=== PATIENT | male | born 1935 | race Caucasian/White ===

== ENCOUNTER → 2018-06-12 09:29 | Outpatient (CLI) | payer OTHER, SELFPAY ==
--- NOTE | 2018-06-12 09:31 | DI.RAD.S_ITS ---
PROCEDURE: XR ELBOW LT MIN 3V INDICATIONS: TENDINITIS OF LEFT ELBOW TECHNIQUE: 4 views of the elbow were acquired. COMPARISON: None. FINDINGS: Bones: No fractures or dislocations. No suspicious bony lesions. 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 This is most prominent at the olecranon fossa and radial head. Soft tissues: No elbow joint effusion. No suspicious soft tissue calcifications. 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 Dictated by: Vince Reyes M.D. on 06/12/2018 at 10:46 Approved by: Vince Reyes M.D. on 06/12/2018 at 10:46
== END ==
PROVIDERS: Family Provider Family Medicine; PCP Family Medicine; Visit Provider Family Medicine
DX: M19.022 Primary osteoarthritis, left elbow (principal); M77.8 Other enthesopathies, not elsewhere classified
CPT/HCPCS: 73080

== ENCOUNTER → 2018-11-11 13:37 | Outpatient (CLI) | payer OTHER, SELFPAY ==
[2018-11-11 14:01] LABS: INR 2.7 (0.9-1.3)
== END ==
PROVIDERS: PCP Family Medicine; Visit Provider Family Medicine
DX: Z95.0 Presence of cardiac pacemaker (principal)
CPT/HCPCS: 36415; 85610

== ENCOUNTER → 2018-11-11 14:50 | Outpatient (CLI) | payer OTHER, SELFPAY ==
--- NOTE | 2018-11-11 14:53 | DI.RAD.S_ITS ---
PROCEDURE: XR THORACIC SPINE 3V INDICATIONS: pain TECHNIQUE: 3 views of the thoracic spine were acquired. COMPARISON: None. FINDINGS: Bones: No fractures or dislocations. Diffuse thoracic spine endplate spurring and sclerosis No suspicious bony lesions. Lower cervical disc degeneration. Lateral curvature of the spine Soft tissues: No paravertebral stripe thickening. IMPRESSION: Diffuse discogenic changes. No fracture Dictated by: Eduardo Stallworth M.D. on 11/11/2018 at 15:57 Approved by: Eduardo Stallworth M.D. on 11/11/2018 at 15:58
--- NOTE | 2018-11-11 14:53 | DI.RAD.S_ITS ---
PROCEDURE: XR LUMBAR SPINE 2-3V INDICATIONS: pain TECHNIQUE: 3 -views of the lumbar spine were acquired. COMPARISON: [facility], , L-SPINE 2-3 VIEWS, 11/19/2013, 16:12. FINDINGS: Bones: No fracture or focal osseous destruction. Grade 1 retrolisthesis of L2 on L3 and L3 on L4. Diffuse facet arthropathy. Moderate narrowing of the L1-L2 and L2-L3 disc spaces. Mild narrowing of the L4-L5 and L5-S1 disc spaces. Dextrocurvature centered at L2 Soft tissues: Overlying bowel gas pattern is normal. No suspicious soft tissue calcifications. IMPRESSION: Multilevel lumbar degeneration and facet arthropathy as detailed above. Notable change since 11/19/13. Dextroscoliosis as before. Dictated by: Eduardo Stallworth M.D. on 11/11/2018 at 15:55 Approved by: Eduardo Stallworth M.D. on 11/11/2018 at 15:57
== END ==
PROVIDERS: PCP Family Medicine; Visit Provider Family Medicine
DX: M51.36 Other intervertebral disc degeneration, lumbar region (principal); M48.061 Spinal stenosis, lumbar region without neurogenic claudication; M47.816 Spondylosis without myelopathy or radiculopathy, lumbar region; M41.86 Other forms of scoliosis, lumbar region
CPT/HCPCS: 36415; 72072; 72100; 85610

== ENCOUNTER → 2018-11-26 15:28 | Outpatient (CLI) | payer OTHER, SELFPAY ==
[2018-11-26 15:47] LABS: Add Manual Diff / Slide Review NO; Basophils Absolute Auto 0 /uL (0-100); Basophils Percent Auto 0.4 % (0-2); Eosinophils Absolute Auto 100 /uL (0-450); Eosinophils Percent Auto 1.3 % (2-4); Hematocrit 43.4 % (41-53); Hemoglobin 14.5 g/dL (13.5-17.5); Lymphocytes Absolute Auto 1100 /uL (1100-4500); Lymphocytes Percent Auto 13.5 % (25-40); Mean Corpuscular HGB Conc 33.5 % (30-36); Mean Corpuscular Volume 95.5 fL (80-100); Monocytes Absolute Auto 700 /uL (0-900); Monocytes Percent Auto 9.2 % (3-14); Neutrophils Absolute Auto 6000 /uL (1500-7000); Neutrophils Percent Auto 75.6 % (50-75); Platelet Count 176 X10^3/uL (150-400); Red Blood Cell Count 4.54 X10^6/uL (4.5-5.9); Red Cell Distribution Width 13.1 % (11.6-14.8)
[2018-11-26 16:18] LABS: Erythrocyte Sedimentation Rate 24 MM/HR (0-15)
[2018-11-26 16:37] LABS: C-Reactive Protein Quant 0.9 mg/dL (<1.0); Uric Acid 5.6 mg/dL (3.5-8.5)
[2018-11-26 16:38] LABS: Rheumatoid Factor < 8.6 IU/mL (<12.0)
[2018-11-29 20:26] LABS: ANA Screen NEGATIVE (Negative); DNA Antibody Crithidia IFA NEGATIVE (Negative); Rheumatoid Factor <14 IU/mL; Sjogren Antiboday SS-A <1.0 NEG AI (<1.0 NEGATIVE); Sjogren Antiboday SS-B <1.0 NEG AI (<1.0 NEGATIVE); Sm Antibody <1.0 NEG AI (<1.0 NEGATIVE); Sm/RNP Antibody <1.0 NEG AI (<1.0 NEGATIVE)
== END ==
PROVIDERS: PCP Family Medicine; Visit Provider Family Medicine
DX: M25.50 Pain in unspecified joint (principal)
CPT/HCPCS: 36415; 84550; 85025; 85651; 86038; 86140; 86430

== ENCOUNTER 2018-12-05 07:30 | Outpatient (RCR) | payer OTHER, SELFPAY ==
--- NOTE | 2018-11-18 15:00 | PT.OIE ---
Current Diagnoses Cervicalgia (11/18/18) Dorsalgia, unspecified (11/18/18) Past Medical History (Last Updated 05/31/18 @ 12:33 by Brisa De La Cruz) ADHD (attention deficit hyperactivity disorder) (Chronic 1935) Cardiac arrhythmia (Chronic 2005) Cataract (Chronic 2011) Chronic back pain (Chronic 1970) Elevated PSA (Chronic 2007) Fecal incontinence (Chronic 2011) Frequent UTI (Chronic) Hearing loss (Chronic 1994) Hypertension (Chronic 2000) Retinal detachment (Chronic 1993) Tinnitus (Chronic ~2004) Chicken pox (Resolved 1939) Kidney stones (Resolved 1960) Measles (Resolved 1940) Melanoma (Resolved ~1989) Skull fracture (Resolved 1939) Past Surgical History (Last Updated 05/31/18 @ 12:25 by Brisa De La Cruz) Anesthesia (Resolved) History of cranial surgery (Resolved 1939) History of nephrolithotomy with removal of calculi (Resolved 1960) Provider Visit Care Team Role Provider Type Jason Vázquez MD Attending Provider Physician Primary Care Provider Specialty: [facility] Address: [address] [place] [address] Email: [email or web address] Physical Therapy Initial Evaluation PT-OP-A Visit Information Start: 11/18/18 09:48 Freq: Status: Active Protocol: Document 11/18/18 11:19 LRN (Rec: 11/18/18 15:09 JAVED [id number]) Out-Patient Physical Therapy Visit Information Visit Information Visit Type Initial Evaluation Visit Start Time 11:19 Visit Stop Time 12:15 Total Visit Minutes 56 Visit Number 1 Number of REGULATORY ASSOCIATE Visits 0 Evaluation Information Evaluation Date 11/18/18 Precautions Precautions Cardiac Pacemaker PT-OP-B Current Condition Start: 11/18/18 09:48 Freq: Status: Active Protocol: Document 11/18/18 11:19 LRN (Rec: 11/18/18 15:09 LRN [id number]) Current Condition History of Current Condition Onset Date 4 weeks ago Current Complaints L elbow, R knee, neck and back pain. History of Current Condition Pt reports 4 weeks ago he had severe neck and back pain that has since resolved, but now is experiencing one week of L elbow and R knee pain. He believes his elbow hurts from having to remove snow/ice and that his knee hurts since he did some work at home requiring him to kneel. He wore a sling for 1 day and was told not to, so now he notes restricted mobility of the elbow. Prior Treatments and Tests X-rays of mid and low back. Pt reports Cervical X-rays 2 years ago (not verified). Future Testing and Treatments Planned None Treatment Goals Patient/Caregiver Goals Pt goals: To be placed on a HEP with specfic directions for how to exercise (weights, reps, etc.). To be able to move the L arm without tightness or pain. To be able to stand and walk without pain. Prior Functional Status Baseline Function- ADL's Independent Baseline Function- Mobility Independent Baseline Function- Recreation/Hobbies Exercised almost daily walking 1-1.5 miles and strengthening . Current Functional Impairments (Reported) Functional Limitations- ADL's Not able to participate in home exercises due to L arm limitation and R knee pain. Functional Limitations- Mobility/Gait Pain in R knee with first standing and gait. Personal Factors Other Personal Factors That May Effect Pacemaker Therapy/Recovery Lumbar disc degeneration and retrolisthesis L2 on L3 and L3 on L4. PT-OP-F Manual Assessment Start: 11/18/18 09:48 Freq: Status: Active Protocol: Document 11/18/18 11:19 LRN (Rec: 11/19/18 12:23 LRN [id number]) Manual Assessments Soft Tissue Assessment Soft Tissue Mobility Assessment Tightness and tenderness of L proximal anterior compartment of the forearm. He has a well healed scar in the anterior aspect of the forearm due to a prior surgery to remove a bone chip. PT-OP-H Neuro Start: 11/18/18 09:48 Freq: Status: Active Protocol: Document 11/18/18 11:19 LRN (Rec: 11/19/18 12:23 LRN [id number]) Sensation Evaluation Gross Sensation Gross Sensation WNL Comments Summary Comments Sensation is intact to soft touch in UE's & LE's. Deep Tendon Reflex & Clonus Assessment Deep Tendon Reflex Bilateral Achilles Deep Tendon Reflex 0 Absent Bilateral Patellar Deep Tendon Reflex 3+ Normal But Brisk Bilateral Tricep Deep Tendon Reflex 2+ Normal Bilateral Bicep Deep Tendon Reflex 2+ Normal Bilateral Brachioradialis Deep Tendon Reflex 1+ Diminished PT-OP-J Posture/Palpation/Skin Start: 11/18/18 09:48 Freq: Status: Active Protocol: Document 11/18/18 11:19 LRN (Rec: 11/19/18 12:23 LRN [id number]) Posture Evaluation Comments Posture Comments In standing: Pt has very wide stance (~1 foot), mild decreased cervical & lumbar lordosis with mild posterior rotation of the pelvis. His COG appears to be more forward of midline. He has a mild C- curve in the mid thoracic region with the apex on the left. Palpation Assessment Location R knee Palpation Location Supra-patellar Palpation Findings Tenderness Palpation Details Mild tenderness ~midline of patella L elbow Palpation Location Wrist flexors and extensors adjacent to biceps tendon Palpation Findings Soft Tissue Tightness Tenderness PT-OP-K Range of Motion Start: 11/18/18 09:48 Freq: Status: Active Protocol: Document 11/18/18 11:19 LRN (Rec: 11/19/18 12:23 LRN [id number]) Cervical Spine Range of Motion Cervical Spine Active Degrees Testing Position Sitting Rotation Left 45 Rotation Right 45 Lumbar Spine Range of Motion Lumbar Spine Active Degrees Testing Position Standing Flexion 65 Extension 15 Rotation Left 30 Rotation Right 20 Lateral Flexion Left 13 Lateral Flexion Right 10 ROM Limitations Bony Restriction Pain Elbow/Forearm Range of Motion Elbow/Forearm Measured in Degrees Right Active ROM Testing Position Sitting Elbow Flexion (degrees) 142 Left Active ROM Testing Position Sitting Elbow Flexion (degrees) 124 Elbow/Forearm ROM Limitations Elbow/Forearm ROM Limitations Soft Tissue Tightness Knee Goniometric Range of Motion Knee Measured in Degrees Right Knee ROM WFL Yes Patient Position Supine Flexion Active (degrees) 130 Extension Active (degrees) 0 Left Knee ROM WFL Yes Patient Position Supine Flexion Active (degrees) 130 Extension Active (degrees) 0 PT-OP-M Strength Start: 11/18/18 09:48 Freq: Status: Active Protocol: Document 11/18/18 11:19 LRN (Rec: 11/19/18 12:23 LRN [id number]) Cervical Spine Strength Cervical Spine Manual Muscle Testing Testing Position Sitting Reason Not Measured WFL Shoulder Strength Shoulder Manual Muscle Testing Right Reason Not Measured WFL Left Reason Not Measured WFL Elbow/Forearm Strength Elbow and Forearm Manual Muscle Testing Left Flexion (C6) 5 Normal Extension (C7) 5 Normal Wrist Strength Wrist Manual Muscle Testing Left Flexion (C7) 5 Normal Extension (C6) 5 Normal Comments Pain in muscle bellies. Knee Strength Knee Manual Muscle Testing Right Reason Not Measured WFL Comments Slight pain R suprapatella, midline Left Reason Not Measured WFL PT-OP-Q Treatments Start: 11/18/18 09:48 Freq: Status: Active Protocol: Document 11/18/18 11:19 LRN (Rec: 11/18/18 15:09 LRN [id number]) Self-Care/Home Management Treatment Education Patient Education Home Exercise Program Other Education Use of Contrast bath technique (Hot/Cold) for L elbow. Activities Self-Care/Home Management Activities Issued, discussed & reviewed HEP: Elbow extension stretch f /b active stretch PT-OP-T Assessment and Plan Start: 11/18/18 09:48 Freq: Status: Active Protocol: Document 11/18/18 11:19 LRN (Rec: 11/18/18 15:09 LRN [id number]) Physical Therapy Assessment Rehab Potential Rehabilitation Potential Good Evaluation Complexity Number of Personal Factors/Comorbidities 1-2 Number of Body Systems Impaired 4 or More Clinical Presentation at Evaluation Evolving Impairments Impairments Pain ROM Soft Tissue Mobility Strength Other Impairments Cardiac pacemaker Other Concerns Age Related Concerns Pacemaker 65+ yrs old Barriers to Rehabilitation 65+ yrs old Arthritis Goals Four Impairment L arm and R knee pain limiting ability to exer for cardiac health. Fdc Goal (LTG) Pt will be independent with an exercise program of cardiovascular and mobility/ strengthening home ex's for his cardiac health and general mobility. LTG Duration 01/17/19 Three Impairment R knee pain limiting his ability to squat or knee. Residential Instructor Goal (LTG) Pt will be able to squat and kneel for functional activities without pain. LTG Duration 01/17/19 Two Impairment Limited L elbow mobility and pain (rated 4/10) Short Term Goal (STG) Improve L mobility for pt to be able to reach objects without pain. STG Duration 12/17/18 Fdc Goal (LTG) Pt will be able to use the L arm with pain no greater than 1/10, and be able to self manage onset of pain. LTG Duration 01/17/19 One Impairment Lacks self care HEP Residential Instructor Goal (LTG) Pt will be independent with a self care HEP. LTG Duration 01/17/19 Assessment Summary Assessment Pt presents with no neck or back pain today, but pt reports variable onset of pain , rated 0-4/10. Currently his primary areas of complaint are at his L anterior elbow and R knee. He appears to have a sprain of his L wrist flexors/extensors and has developed an elbow flexion contracture. It appears he has a sprain/strain of his R supra patellar tendon with possible bony involvement from arthritis. Possible neck or low back involvement to his extremity pain, but not apparent at this time. The pt will benefit from skilled physical therapy to decrease his L elbow and R knee pain and return the pt to his prior level of function of activity tolerance and exercise tolerance, primarily to place him on an exercise program for him to resume activity for his cardiac health. Physical Therapy Plan Frequency and Duration Frequency of Treatment 2x/Week Plan of Care Start Date 11/18/18 Plan of Care End Date 01/17/19 Therapeutic Interventions Therapeutic Interventions Home Exercise Program Manual Therapy Patient/Caregiver Education Self-Care/Home Management Soft Tissue Mobilization Therapeutic Exercises Modalities Cold Pack/Ice Massage Hot Packs Ultrasound Other Therapeutic Interventions K-tape Next Visit Focus/Plan Next Note Type Treatment Note Next Visit Plan Ultrasound L anterior elbow and R supra patellar knee if needed. PROM/AROM L elbow, possibly exercise warm up for L elbow extension and ROM R knee. Start pt towards his independent HEP of general strengthening and cardiac conditioning.
--- NOTE | 2018-11-18 15:00 | PT.OIE ---
Current Diagnoses Pain in left elbow (11/18/18) Pain in right knee (11/18/18) Cervicalgia (11/18/18) Dorsalgia, unspecified (11/18/18) Muscle weakness (generalized) (11/18/18) Past Medical History (Last Updated 05/31/18 @ 12:33 by Brisa De La Cruz) ADHD (attention deficit hyperactivity disorder) (Chronic 1935) Cardiac arrhythmia (Chronic 2005) Cataract (Chronic 2011) Chronic back pain (Chronic 1969) Elevated PSA (Chronic 2007) Fecal incontinence (Chronic 2011) Frequent UTI (Chronic) Hearing loss (Chronic 1994) Hypertension (Chronic 2000) Retinal detachment (Chronic 1993) Tinnitus (Chronic ~2004) Chicken pox (Resolved 1939) Kidney stones (Resolved 1960) Measles (Resolved 1940) Melanoma (Resolved ~1989) Skull fracture (Resolved 1939) Past Surgical History (Last Updated 05/31/18 @ 12:25 by Brisa De La Cruz) Anesthesia (Resolved) History of cranial surgery (Resolved 1939) History of nephrolithotomy with removal of calculi (Resolved 1960) Provider Visit Care Team Role Provider Type Jason Vázquez MD Attending Provider Physician Primary Care Provider Specialty: [facility] Practice Address: [address] [place] [address] Email: [email or web address] Physical Therapy Initial Evaluation PT-OP-A Visit Information Start: 11/18/18 09:48 Freq: Status: Active Protocol: Document 11/18/18 11:19 LRN (Rec: 11/18/18 15:09 JAVED [id number]) Out-Patient Physical Therapy Visit Information Visit Information Visit Type Initial Evaluation Visit Start Time 11: Visit Stop Time 12:15 Total Visit Minutes 56 Visit Number 1 Number of AUTOMATIC NAILING MACHINE OPERATOR Visits 0 Evaluation Information Evaluation Date 11/18/18 Precautions Precautions Cardiac Pacemaker PT-OP-B Current Condition Start: 11/18/18 09:48 Freq: Status: Active Protocol: Document 11/18/18 11:19 LRN (Rec: 11/18/18 15:09 LRN [id number]) Current Condition History of Current Condition Onset Date 4 weeks ago Current Complaints L elbow, R knee, neck and back pain. History of Current Condition Pt reports 4 weeks ago he had severe neck and back pain that has since resolved, but now is experiencing one week of L elbow and R knee pain. He believes his elbow hurts from having to remove snow/ice and that his knee hurts since he did some work at home requiring him to kneel. He wore a sling for 1 day and was told not to, so now he notes restricted mobility of the elbow. Prior Treatments and Tests X-rays of mid and low back. Pt reports Cervical X-rays 2 years ago (not verified). Future Testing and Treatments Planned None Treatment Goals Patient/Caregiver Goals Pt goals: To be placed on a HEP with specfic directions for how to exercise (weights, reps, etc.). To be able to move the L arm without tightness or pain. To be able to stand and walk without pain. Prior Functional Status Baseline Function- ADL's Independent Baseline Function- Mobility Independent Baseline Function- Recreation/Hobbies Exercised almost daily walking 1-1.5 miles and strengthening . Current Functional Impairments (Reported) Functional Limitations- ADL's Not able to participate in home exercises due to L arm limitation and R knee pain. Functional Limitations- Mobility/Gait Pain in R knee with first standing and gait. Personal Factors Other Personal Factors That May Effect Pacemaker Therapy/Recovery Lumbar disc degeneration and retrolisthesis L2 on L3 and L3 on L4. PT-OP-F Manual Assessment Start: 11/18/18 09:48 Freq: Status: Active Protocol: Document 11/18/18 11:19 LRN (Rec: 11/19/18 12:23 LRN [id number]) Manual Assessments Soft Tissue Assessment Soft Tissue Mobility Assessment Tightness and tenderness of L proximal anterior compartment of the forearm. He has a well healed scar in the anterior aspect of the forearm due to a prior surgery to remove a bone chip. PT-OP-H Neuro Start: 11/18/18 09:48 Freq: Status: Active Protocol: Document 11/18/18 11:19 LRN (Rec: 11/19/18 12:23 LRN [id number]) Sensation Evaluation Gross Sensation Gross Sensation WNL Comments Summary Comments Sensation is intact to soft touch in UE's & LE's. Deep Tendon Reflex & Clonus Assessment Deep Tendon Reflex Bilateral Achilles Deep Tendon Reflex 0 Absent Bilateral Patellar Deep Tendon Reflex 3+ Normal But Brisk Bilateral Tricep Deep Tendon Reflex 2+ Normal Bilateral Bicep Deep Tendon Reflex 2+ Normal Bilateral Brachioradialis Deep Tendon Reflex 1+ Diminished PT-OP-J Posture/Palpation/Skin Start: 11/18/18 09:48 Freq: Status: Active Protocol: Document 11/18/18 11:19 LRN (Rec: 11/19/18 12:23 LRN [id number]) Posture Evaluation Comments Posture Comments In standing: Pt has very wide stance (~1 foot), mild decreased cervical & lumbar lordosis with mild posterior rotation of the pelvis. His COG appears to be more forward of midline. He has a mild C- curve in the mid thoracic region with the apex on the left. Palpation Assessment Location R knee Palpation Location Supra-patellar Palpation Findings Tenderness Palpation Details Mild tenderness ~midline of patella L elbow Palpation Location Wrist flexors and extensors adjacent to biceps tendon Palpation Findings Soft Tissue Tightness Tenderness PT-OP-K Range of Motion Start: 11/18/18 09:48 Freq: Status: Active Protocol: Document 11/18/18 11:19 LRN (Rec: 11/19/18 12:23 LRN [id number]) Cervical Spine Range of Motion Cervical Spine Active Degrees Testing Position Sitting Rotation Left 45 Rotation Right 45 Lumbar Spine Range of Motion Lumbar Spine Active Degrees Testing Position Standing Flexion 65 Extension 15 Rotation Left 30 Rotation Right 20 Lateral Flexion Left 13 Lateral Flexion Right 10 ROM Limitations Bony Restriction Pain Elbow/Forearm Range of Motion Elbow/Forearm Measured in Degrees Right Active ROM Testing Position Sitting Elbow Flexion (degrees) 142 Left Active ROM Testing Position Sitting Elbow Flexion (degrees) 124 Elbow/Forearm ROM Limitations Elbow/Forearm ROM Limitations Soft Tissue Tightness Knee Goniometric Range of Motion Knee Measured in Degrees Right Knee ROM WFL Yes Patient Position Supine Flexion Active (degrees) 130 Extension Active (degrees) 0 Left Knee ROM WFL Yes Patient Position Supine Flexion Active (degrees) 130 Extension Active (degrees) 0 PT-OP-M Strength Start: 11/18/18 09:48 Freq: Status: Active Protocol: Document 11/18/18 11:19 LRN (Rec: 11/19/18 12:23 LRN [id number]) Cervical Spine Strength Cervical Spine Manual Muscle Testing Testing Position Sitting Reason Not Measured WFL Shoulder Strength Shoulder Manual Muscle Testing Right Reason Not Measured WFL Left Reason Not Measured WFL Elbow/Forearm Strength Elbow and Forearm Manual Muscle Testing Left Flexion (C6) 5 Normal Extension (C7) 5 Normal Wrist Strength Wrist Manual Muscle Testing Left Flexion (C7) 5 Normal Extension (C6) 5 Normal Comments Pain in muscle bellies. Knee Strength Knee Manual Muscle Testing Right Reason Not Measured WFL Comments Slight pain R suprapatella, midline Left Reason Not Measured WFL PT-OP-Q Treatments Start: 11/18/18 09:48 Freq: Status: Active Protocol: Document 11/18/18 11:19 LRN (Rec: 11/18/18 15:09 LRN [id number]) Self-Care/Home Management Treatment Education Patient Education Home Exercise Program Other Education Use of Contrast bath technique (Hot/Cold) for L elbow. Activities Self-Care/Home Management Activities Issued, discussed & reviewed HEP: Elbow extension stretch f /b active stretch PT-OP-T Assessment and Plan Start: 11/18/18 09:48 Freq: Status: Active Protocol: Document 11/18/18 11:19 LRN (Rec: 11/18/18 15:09 LRN [id number]) Physical Therapy Assessment Rehab Potential Rehabilitation Potential Good Evaluation Complexity Number of Personal Factors/Comorbidities 1-2 Number of Body Systems Impaired 4 or More Clinical Presentation at Evaluation Evolving Impairments Impairments Pain ROM Soft Tissue Mobility Strength Other Impairments Cardiac pacemaker Other Concerns Age Related Concerns Pacemaker 65+ yrs old Barriers to Rehabilitation 65+ yrs old Arthritis Goals Four Impairment L arm and R knee pain limiting ability to exer for cardiac health. Brush And Broom Clipper Goal (LTG) Pt will be independent with an exercise program of cardiovascular and mobility/ strengthening home ex's for his cardiac health and general mobility. LTG Duration 01/17/19 Three Impairment R knee pain limiting his ability to squat or knee. Brush And Broom Clipper Goal (LTG) Pt will be able to squat and kneel for functional activities without pain. LTG Duration 01/17/19 Two Impairment Limited L elbow mobility and pain (rated 4/10) Short Term Goal (STG) Improve L mobility for pt to be able to reach objects without pain. STG Duration 12/17/18 Brush And Broom Clipper Goal (LTG) Pt will be able to use the L arm with pain no greater than 1/10, and be able to self manage onset of pain. LTG Duration 01/17/19 One Impairment Lacks self care HEP Brush And Broom Clipper Goal (LTG) Pt will be independent with a self care HEP. LTG Duration 01/17/19 Assessment Summary Assessment Pt presents with no neck or back pain today, but pt reports variable onset of pain , rated 0-4/10. Currently his primary areas of complaint are at his L anterior elbow and R knee. He appears to have a sprain of his L wrist flexors/extensors and has developed an elbow flexion contracture. It appears he has a sprain/strain of his R supra patellar tendon with possible bony involvement from arthritis. Possible neck or low back involvement to his extremity pain, but not apparent at this time. The pt will benefit from skilled physical therapy to decrease his L elbow and R knee pain and return the pt to his prior level of function of activity tolerance and exercise tolerance, primarily to place him on an exercise program for him to resume activity for his cardiac health. Physical Therapy Plan Frequency and Duration Frequency of Treatment 2x/Week Plan of Care Start Date 11/18/18 Plan of Care End Date 01/17/19 Therapeutic Interventions Therapeutic Interventions Home Exercise Program Manual Therapy Patient/Caregiver Education Self-Care/Home Management Soft Tissue Mobilization Therapeutic Exercises Modalities Cold Pack/Ice Massage Hot Packs Ultrasound Other Therapeutic Interventions K-tape Next Visit Focus/Plan Next Note Type Treatment Note Next Visit Plan Ultrasound L anterior elbow and R supra patellar knee if needed. PROM/AROM L elbow, possibly exercise warm up for L elbow extension and ROM R knee. Start pt towards his independent HEP of general strengthening and cardiac conditioning.
--- NOTE | 2018-11-20 08:43 | PT.OTN ---
Current Diagnoses Cervicalgia (11/20/18) Dorsalgia, unspecified (11/20/18) Physical Therapy Treatment Note PT-OP-A Visit Information Start: 11/18/18 09:48 Freq: Status: Active Protocol: Document 11/20/18 07:30 AMB (Rec: 11/20/18 08:43 AMB [id number]) Out-Patient Physical Therapy Visit Information Visit Information Visit Type Treatment Note Visit Start Time 07:30 Visit Stop Time 08:15 Total Visit Minutes 45 Visit Number 2 PT-OP-B Current Condition Start: 11/18/18 09:48 Freq: Status: Active Protocol: Document 11/18/18 11:19 LRN (Rec: 11/18/18 15:09 LRN [id number]) Current Condition History of Current Condition Onset Date 4 weeks ago Current Complaints L elbow, R knee, neck and back pain. History of Current Condition Pt reports 4 weeks ago he had severe neck and back pain that has since resolved, but now is experiencing one week of L elbow and R knee pain. He believes his elbow hurts from having to remove snow/ice and that his knee hurts since he did some work at home requiring him to kneel. He wore a sling for 1 day and was told not to, so now he notes restricted mobility of the elbow. Prior Treatments and Tests X-rays of mid and low back. Pt reports Cervical X-rays 2 years ago (not verified). Future Testing and Treatments Planned None Treatment Goals Patient/Caregiver Goals Pt goals: To be placed on a HEP with specfic directions for how to exercise (weights, reps, etc.). To be able to move the L arm without tightness or pain. To be able to stand and walk without pain. Prior Functional Status Baseline Function- ADL's Independent Baseline Function- Mobility Independent Baseline Function- Recreation/Hobbies Exercised almost daily walking 1-1.5 miles and strengthening . Current Functional Impairments (Reported) Functional Limitations- ADL's Not able to participate in home exercises due to L arm limitation and R knee pain. Functional Limitations- Mobility/Gait Pain in R knee with first standing and gait. Personal Factors Other Personal Factors That May Effect Pacemaker Therapy/Recovery Lumbar disc degeneration and retrolisthesis L2 on L3 and L3 on L4. PT-OP-C Subjective Start: 11/18/18 09:48 Freq: Status: Active Protocol: Document 11/20/18 07:30 AMB (Rec: 11/20/18 08:43 AMB [id number]) OP-PT Subjective Patient Comments Patient Comments Pt reports extension is still bothersome to his elbow. His back and knee are doing well. Hasn't gotten back to his regular exercises yet. PT-OP-F Manual Assessment Start: 11/18/18 09:48 Freq: Status: Active Protocol: Document 11/18/18 11:19 LRN (Rec: 11/19/18 12:23 LRN [id number]) Manual Assessments Soft Tissue Assessment Soft Tissue Mobility Assessment Tightness and tenderness of L proximal anterior compartment of the forearm. He has a well healed scar in the anterior aspect of the forearm due to a prior surgery to remove a bone chip. PT-OP-H Neuro Start: 11/18/18 09:48 Freq: Status: Active Protocol: Document 11/18/18 11:19 LRN (Rec: 11/19/18 12:23 LRN [id number]) Sensation Evaluation Gross Sensation Gross Sensation WNL Comments Summary Comments Sensation is intact to soft touch in UE's & LE's. Deep Tendon Reflex & Clonus Assessment Deep Tendon Reflex Bilateral Achilles Deep Tendon Reflex 0 Absent Bilateral Patellar Deep Tendon Reflex 3+ Normal But Brisk Bilateral Tricep Deep Tendon Reflex 2+ Normal Bilateral Bicep Deep Tendon Reflex 2+ Normal Bilateral Brachioradialis Deep Tendon Reflex 1+ Diminished PT-OP-J Posture/Palpation/Skin Start: 11/18/18 09:48 Freq: Status: Active Protocol: Document 11/18/18 11:19 LRN (Rec: 11/19/18 12:23 LRN [id number]) Posture Evaluation Comments Posture Comments In standing: Pt has very wide stance (~1 foot), mild decreased cervical & lumbar lordosis with mild posterior rotation of the pelvis. His COG appears to be more forward of midline. He has a mild C- curve in the mid thoracic region with the apex on the left. Palpation Assessment Location R knee Palpation Location Supra-patellar Palpation Findings Tenderness Palpation Details Mild tenderness ~midline of patella L elbow Palpation Location Wrist flexors and extensors adjacent to biceps tendon Palpation Findings Soft Tissue Tightness Tenderness PT-OP-K Range of Motion Start: 11/18/18 09:48 Freq: Status: Active Protocol: Document 11/18/18 11:19 LRN (Rec: 11/19/18 12:23 LRN [id number]) Cervical Spine Range of Motion Cervical Spine Active Degrees Testing Position Sitting Rotation Left 45 Rotation Right 45 Lumbar Spine Range of Motion Lumbar Spine Active Degrees Testing Position Standing Flexion 65 Extension 15 Rotation Left 30 Rotation Right 20 Lateral Flexion Left 13 Lateral Flexion Right 10 ROM Limitations Bony Restriction Pain Elbow/Forearm Range of Motion Elbow/Forearm Measured in Degrees Right Active ROM Testing Position Sitting Elbow Flexion (degrees) 142 Left Active ROM Testing Position Sitting Elbow Flexion (degrees) 124 Elbow/Forearm ROM Limitations Elbow/Forearm ROM Limitations Soft Tissue Tightness Knee Goniometric Range of Motion Knee Measured in Degrees Right Knee ROM WFL Yes Patient Position Supine Flexion Active (degrees) 130 Extension Active (degrees) 0 Left Knee ROM WFL Yes Patient Position Supine Flexion Active (degrees) 130 Extension Active (degrees) 0 PT-OP-M Strength Start: 11/18/18 09:48 Freq: Status: Active Protocol: Document 11/18/18 11:19 LRN (Rec: 11/19/18 12:23 LRN [id number]) Cervical Spine Strength Cervical Spine Manual Muscle Testing Testing Position Sitting Reason Not Measured WFL Shoulder Strength Shoulder Manual Muscle Testing Right Reason Not Measured WFL Left Reason Not Measured WFL Elbow/Forearm Strength Elbow and Forearm Manual Muscle Testing Left Flexion (C6) 5 Normal Extension (C7) 5 Normal Wrist Strength Wrist Manual Muscle Testing Left Flexion (C7) 5 Normal Extension (C6) 5 Normal Comments Pain in muscle bellies. Knee Strength Knee Manual Muscle Testing Right Reason Not Measured WFL Comments Slight pain R suprapatella, midline Left Reason Not Measured WFL PT-OP-Q Treatments Start: 11/18/18 09:48 Freq: Status: Active Protocol: Document 11/20/18 07:30 AMB (Rec: 11/20/18 08:43 AMB [email or web address]) Therapeutic Exercises Sitting Exercises 2 Sitting Exercise Name LAQ AROM Reps/Minutes 2x10 1 Sitting Exercise Name wrist flexor stretch Reps/Minutes 30x2 Standing Exercises 3 Standing Exercise Name scapular protraction Comments standing at wall 2 Standing Exercise Name t band shoulder extension Resistance #1 Reps/Minutes 2x10 1 Standing Exercise Name t band rows Resistance #1 Reps/Minutes 2x10 PT-OP-T Assessment and Plan Start: 11/18/18 09:48 Freq: Status: Active Protocol: Document 11/20/18 07:30 AMB (Rec: 11/20/18 08:43 AMB [email or web address]) Physical Therapy Assessment Assessment Summary Assessment Pt has an extensive home program already, but needs assistance with how to safely get back to it. Elbow extension seems to be the most restricted currently. Physical Therapy Plan Next Visit Focus/Plan Next Note Type Treatment Note Next Visit Plan Ultrasound L anterior elbow PROM/AROM L elbow, possibly exercise warm up for L elbow extension and ROM R knee. Start pt towards his independent HEP of general strengthening and cardiac conditioning.
--- NOTE | 2018-11-26 09:52 | PT.OTN ---
Current Diagnoses Cervicalgia (11/26/18) Dorsalgia, unspecified (11/26/18) Physical Therapy Treatment Note PT-OP-A Visit Information Start: 11/18/18 09:48 Freq: Status: Active Protocol: Document 11/26/18 07:30 AMB (Rec: 11/26/18 07:37 AMB [id number]) Out-Patient Physical Therapy Visit Information Visit Information Visit Type Treatment Note Visit Start Time 07:30 Visit Stop Time 08:15 Visit Number 3 PT-OP-B Current Condition Start: 11/18/18 09:48 Freq: Status: Active Protocol: Document 11/18/18 11:19 LRN (Rec: 11/18/18 15:09 LRN [id number]) Current Condition History of Current Condition Onset Date 4 weeks ago Current Complaints L elbow, R knee, neck and back pain. History of Current Condition Pt reports 4 weeks ago he had severe neck and back pain that has since resolved, but now is experiencing one week of L elbow and R knee pain. He believes his elbow hurts from having to remove snow/ice and that his knee hurts since he did some work at home requiring him to kneel. He wore a sling for 1 day and was told not to, so now he notes restricted mobility of the elbow. Prior Treatments and Tests X-rays of mid and low back. Pt reports Cervical X-rays 2 years ago (not verified). Future Testing and Treatments Planned None Treatment Goals Patient/Caregiver Goals Pt goals: To be placed on a HEP with specfic directions for how to exercise (weights, reps, etc.). To be able to move the L arm without tightness or pain. To be able to stand and walk without pain. Prior Functional Status Baseline Function- ADL's Independent Baseline Function- Mobility Independent Baseline Function- Recreation/Hobbies Exercised almost daily walking 1-1.5 miles and strengthening . Current Functional Impairments (Reported) Functional Limitations- ADL's Not able to participate in home exercises due to L arm limitation and R knee pain. Functional Limitations- Mobility/Gait Pain in R knee with first standing and gait. Personal Factors Other Personal Factors That May Effect Pacemaker Therapy/Recovery Lumbar disc degeneration and retrolisthesis L2 on L3 and L3 on L4. PT-OP-C Subjective Start: 11/18/18 09:48 Freq: Status: Active Protocol: Document 11/26/18 07:30 AMB (Rec: 11/26/18 07:37 AMB [id number]) OP-PT Subjective Patient Comments Patient Comments Pt is feeling swelling in left wrist. PT-OP-F Manual Assessment Start: 11/18/18 09:48 Freq: Status: Active Protocol: Document 11/18/18 11:19 LRN (Rec: 11/19/18 12:23 LRN [id number]) Manual Assessments Soft Tissue Assessment Soft Tissue Mobility Assessment Tightness and tenderness of L proximal anterior compartment of the forearm. He has a well healed scar in the anterior aspect of the forearm due to a prior surgery to remove a bone chip. PT-OP-H Neuro Start: 11/18/18 09:48 Freq: Status: Active Protocol: Document 11/18/18 11:19 LRN (Rec: 11/19/18 12:23 LRN [id number]) Sensation Evaluation Gross Sensation Gross Sensation WNL Comments Summary Comments Sensation is intact to soft touch in UE's & LE's. Deep Tendon Reflex & Clonus Assessment Deep Tendon Reflex Bilateral Achilles Deep Tendon Reflex 0 Absent Bilateral Patellar Deep Tendon Reflex 3+ Normal But Brisk Bilateral Tricep Deep Tendon Reflex 2+ Normal Bilateral Bicep Deep Tendon Reflex 2+ Normal Bilateral Brachioradialis Deep Tendon Reflex 1+ Diminished PT-OP-J Posture/Palpation/Skin Start: 11/18/18 09:48 Freq: Status: Active Protocol: Document 11/18/18 11:19 LRN (Rec: 11/19/18 12:23 LRN [id number]) Posture Evaluation Comments Posture Comments In standing: Pt has very wide stance (~1 foot), mild decreased cervical & lumbar lordosis with mild posterior rotation of the pelvis. His COG appears to be more forward of midline. He has a mild C- curve in the mid thoracic region with the apex on the left. Palpation Assessment Location R knee Palpation Location Supra-patellar Palpation Findings Tenderness Palpation Details Mild tenderness ~midline of patella L elbow Palpation Location Wrist flexors and extensors adjacent to biceps tendon Palpation Findings Soft Tissue Tightness Tenderness PT-OP-K Range of Motion Start: 11/18/18 09:48 Freq: Status: Active Protocol: Document 11/18/18 11:19 LRN (Rec: 11/19/18 12:23 LRN [id number]) Cervical Spine Range of Motion Cervical Spine Active Degrees Testing Position Sitting Rotation Left 45 Rotation Right 45 Lumbar Spine Range of Motion Lumbar Spine Active Degrees Testing Position Standing Flexion 65 Extension 15 Rotation Left 30 Rotation Right 20 Lateral Flexion Left 13 Lateral Flexion Right 10 ROM Limitations Bony Restriction Pain Elbow/Forearm Range of Motion Elbow/Forearm Measured in Degrees Right Active ROM Testing Position Sitting Elbow Flexion (degrees) 142 Left Active ROM Testing Position Sitting Elbow Flexion (degrees) 124 Elbow/Forearm ROM Limitations Elbow/Forearm ROM Limitations Soft Tissue Tightness Knee Goniometric Range of Motion Knee Measured in Degrees Right Knee ROM WFL Yes Patient Position Supine Flexion Active (degrees) 130 Extension Active (degrees) 0 Left Knee ROM WFL Yes Patient Position Supine Flexion Active (degrees) 130 Extension Active (degrees) 0 PT-OP-M Strength Start: 11/18/18 09:48 Freq: Status: Active Protocol: Document 11/18/18 11:19 LRN (Rec: 11/19/18 12:23 LRN [id number]) Cervical Spine Strength Cervical Spine Manual Muscle Testing Testing Position Sitting Reason Not Measured WFL Shoulder Strength Shoulder Manual Muscle Testing Right Reason Not Measured WFL Left Reason Not Measured WFL Elbow/Forearm Strength Elbow and Forearm Manual Muscle Testing Left Flexion (C6) 5 Normal Extension (C7) 5 Normal Wrist Strength Wrist Manual Muscle Testing Left Flexion (C7) 5 Normal Extension (C6) 5 Normal Comments Pain in muscle bellies. Knee Strength Knee Manual Muscle Testing Right Reason Not Measured WFL Comments Slight pain R suprapatella, midline Left Reason Not Measured WFL PT-OP-Q Treatments Start: 11/18/18 09:48 Freq: Status: Active Protocol: Document 11/26/18 07:30 AMB (Rec: 11/26/18 09:06 AMB [id number]) Cardio Equipment Treadmill Duration (Minutes) 5 Speed 2.0 Gym Equipment Cable Column (Body Solid) Leg Extension Resistance 20 Reps/Time 2x10 Therapeutic Exercises Sitting Exercises 4 Sitting Exercise Name UT stretch 3 Sitting Exercise Name chin tuck Standing Exercises 5 Standing Exercise Name calf stretch 4 Standing Exercise Name hamstring stretch PT-OP-T Assessment and Plan Start: 11/18/18 09:48 Freq: Status: Active Protocol: Document 11/26/18 07:30 AMB (Rec: 11/26/18 09:02 AMB [id number]) Physical Therapy Assessment Assessment Summary Assessment Pt attends with L wrist swelling that he attributes to stretching his L elbow. His L elbow AROM is improved today , but we did not address this much today, as he is seeing his MD regarding the wrist. He is doing well with his knee and his neck. Physical Therapy Plan Next Visit Focus/Plan Next Note Type Treatment Note Next Visit Plan Ultrasound L anterior elbow PROM/AROM L elbow, possibly exercise warm up for L elbow extension and ROM R knee. Start pt towards his independent HEP of general strengthening and cardiac conditioning.
--- NOTE | 2018-12-05 15:22 | PT.OTN ---
Current Diagnoses Cervicalgia (12/05/18) Dorsalgia, unspecified (12/05/18) Physical Therapy Treatment Note PT-OP-A Visit Information Start: 11/18/18 09:48 Freq: Status: Active Protocol: Document 12/05/18 07:30 AMB (Rec: 12/05/18 07:44 AMB [id number]) Out-Patient Physical Therapy Visit Information Visit Information Visit Type Treatment Note Visit Start Time 07:30 Visit Stop Time 08:15 Visit Number 4 PT-OP-B Current Condition Start: 11/18/18 09:48 Freq: Status: Active Protocol: Document 11/18/18 11:19 LRN (Rec: 11/18/18 15:09 LRN [id number]) Current Condition History of Current Condition Onset Date 4 weeks ago Current Complaints L elbow, R knee, neck and back pain. History of Current Condition Pt reports 4 weeks ago he had severe neck and back pain that has since resolved, but now is experiencing one week of L elbow and R knee pain. He believes his elbow hurts from having to remove snow/ice and that his knee hurts since he did some work at home requiring him to kneel. He wore a sling for 1 day and was told not to, so now he notes restricted mobility of the elbow. Prior Treatments and Tests X-rays of mid and low back. Pt reports Cervical X-rays 2 years ago (not verified). Future Testing and Treatments Planned None Treatment Goals Patient/Caregiver Goals Pt goals: To be placed on a HEP with specfic directions for how to exercise (weights, reps, etc.). To be able to move the L arm without tightness or pain. To be able to stand and walk without pain. Prior Functional Status Baseline Function- ADL's Independent Baseline Function- Mobility Independent Baseline Function- Recreation/Hobbies Exercised almost daily walking 1-1.5 miles and strengthening . Current Functional Impairments (Reported) Functional Limitations- ADL's Not able to participate in home exercises due to L arm limitation and R knee pain. Functional Limitations- Mobility/Gait Pain in R knee with first standing and gait. Personal Factors Other Personal Factors That May Effect Pacemaker Therapy/Recovery Lumbar disc degeneration and retrolisthesis L2 on L3 and L3 on L4. PT-OP-C Subjective Start: 11/18/18 09:48 Freq: Status: Active Protocol: Document 12/05/18 07:30 AMB (Rec: 12/05/18 07:44 AMB [id number]) OP-PT Subjective Patient Comments Patient Comments Pt's swelling is better, has been walking, but has not gotten back to his regular exercise routine. PT-OP-F Manual Assessment Start: 11/18/18 09:48 Freq: Status: Active Protocol: Document 11/18/18 11:19 LRN (Rec: 11/19/18 12:23 LRN [id number]) Manual Assessments Soft Tissue Assessment Soft Tissue Mobility Assessment Tightness and tenderness of L proximal anterior compartment of the forearm. He has a well healed scar in the anterior aspect of the forearm due to a prior surgery to remove a bone chip. PT-OP-H Neuro Start: 11/18/18 09:48 Freq: Status: Active Protocol: Document 11/18/18 11:19 LRN (Rec: 11/19/18 12:23 LRN [id number]) Sensation Evaluation Gross Sensation Gross Sensation WNL Comments Summary Comments Sensation is intact to soft touch in UE's & LE's. Deep Tendon Reflex & Clonus Assessment Deep Tendon Reflex Bilateral Achilles Deep Tendon Reflex 0 Absent Bilateral Patellar Deep Tendon Reflex 3+ Normal But Brisk Bilateral Tricep Deep Tendon Reflex 2+ Normal Bilateral Bicep Deep Tendon Reflex 2+ Normal Bilateral Brachioradialis Deep Tendon Reflex 1+ Diminished PT-OP-J Posture/Palpation/Skin Start: 11/18/18 09:48 Freq: Status: Active Protocol: Document 11/18/18 11:19 LRN (Rec: 11/19/18 12:23 LRN [id number]) Posture Evaluation Comments Posture Comments In standing: Pt has very wide stance (~1 foot), mild decreased cervical & lumbar lordosis with mild posterior rotation of the pelvis. His COG appears to be more forward of midline. He has a mild C- curve in the mid thoracic region with the apex on the left. Palpation Assessment Location R knee Palpation Location Supra-patellar Palpation Findings Tenderness Palpation Details Mild tenderness ~midline of patella L elbow Palpation Location Wrist flexors and extensors adjacent to biceps tendon Palpation Findings Soft Tissue Tightness Tenderness PT-OP-K Range of Motion Start: 11/18/18 09:48 Freq: Status: Active Protocol: Document 11/18/18 11:19 LRN (Rec: 11/19/18 12:23 LRN [id number]) Cervical Spine Range of Motion Cervical Spine Active Degrees Testing Position Sitting Rotation Left 45 Rotation Right 45 Lumbar Spine Range of Motion Lumbar Spine Active Degrees Testing Position Standing Flexion 65 Extension 15 Rotation Left 30 Rotation Right 20 Lateral Flexion Left 13 Lateral Flexion Right 10 ROM Limitations Bony Restriction Pain Elbow/Forearm Range of Motion Elbow/Forearm Measured in Degrees Right Active ROM Testing Position Sitting Elbow Flexion (degrees) 142 Left Active ROM Testing Position Sitting Elbow Flexion (degrees) 124 Elbow/Forearm ROM Limitations Elbow/Forearm ROM Limitations Soft Tissue Tightness Knee Goniometric Range of Motion Knee Measured in Degrees Right Knee ROM WFL Yes Patient Position Supine Flexion Active (degrees) 130 Extension Active (degrees) 0 Left Knee ROM WFL Yes Patient Position Supine Flexion Active (degrees) 130 Extension Active (degrees) 0 PT-OP-M Strength Start: 11/18/18 09:48 Freq: Status: Active Protocol: Document 11/18/18 11:19 LRN (Rec: 11/19/18 12:23 LRN [id number]) Cervical Spine Strength Cervical Spine Manual Muscle Testing Testing Position Sitting Reason Not Measured WFL Shoulder Strength Shoulder Manual Muscle Testing Right Reason Not Measured WFL Left Reason Not Measured WFL Elbow/Forearm Strength Elbow and Forearm Manual Muscle Testing Left Flexion (C6) 5 Normal Extension (C7) 5 Normal Wrist Strength Wrist Manual Muscle Testing Left Flexion (C7) 5 Normal Extension (C6) 5 Normal Comments Pain in muscle bellies. Knee Strength Knee Manual Muscle Testing Right Reason Not Measured WFL Comments Slight pain R suprapatella, midline Left Reason Not Measured WFL PT-OP-Q Treatments Start: 11/18/18 09:48 Freq: Status: Active Protocol: Document 12/05/18 07:30 AMB (Rec: 12/05/18 15:17 AMB [email or web address]) Therapeutic Exercises Supine Exercises 1 Supine Exercise Name leg lift Comments with vc for flat lumbar spine Sitting Exercises 4 Sitting Exercise Name UT stretch 3 Sitting Exercise Name chin tuck 1 Sitting Exercise Name wrist flexor stretch Reps/Minutes 30x2 Standing Exercises 7 Standing Exercise Name lunges 6 Standing Exercise Name squats Therapeutic Activity Therapeutic Activity 1 Comments Ergonomic stetup of desk, appropriate lumbar support PT-OP-T Assessment and Plan Start: 11/18/18 09:48 Freq: Status: Active Protocol: Document 12/05/18 07:57 AMB (Rec: 12/05/18 08:04 [facility] [id number]) Physical Therapy Assessment Goals Four Impairment L arm and R knee pain limiting ability to exer for cardiac health. Alf Goal (LTG) Pt will be independent with an exercise program of cardiovascular and mobility/ strengthening home ex's for his cardiac health and general mobility. LTG Duration 01/17/19 Three Impairment R knee pain limiting his ability to squat or knee. [employer] Goal (LTG) Pt will be able to squat and kneel for functional activities without pain. LTG Duration MET Two Impairment Limited L elbow mobility and pain (rated 4/10) Short Term Goal (STG) Improve L mobility for pt to be able to reach objects without pain. STG Duration MET Alf Goal (LTG) Pt will be able to use the L arm with pain no greater than 1/10, and be able to self manage onset of pain. LTG Duration MET One Impairment Lacks self care HEP [employer] Goal (LTG) Pt will be independent with a self care HEP. LTG Duration 01/17/19 Assessment Summary Assessment Pt required extensive education in his HEP, and appropriate return to exercise . He has paused a lot of his UE exercises due to his elbow and wrist pain. He is seeing an orthopedic surgeon regarding his thumb tomorrow, and will discuss continued PT with him. Pt has an extensive HEP, so hopefully he will be able to return to it with caution soon. Physical Therapy Plan Next Visit Focus/Plan Next Visit Plan Possible d/c
--- NOTE | 2019-01-24 15:46 | PT.OPDS ---
Current Diagnoses Cervicalgia (12/05/18) Dorsalgia, unspecified (12/05/18) Provider Visit Care Team Role Provider Type Jason Vázquez MD Attending Provider Physician Primary Care Provider Specialty: Family Practice Address: [address] [place] [address], [facility] Email: [email or web address] Visit Number Visit Number 4 Discharge Summary PT-OP-B Current Condition Start: 11/18/18 09:48 Freq: Status: Active Protocol: Document 11/18/18 11:19 LRN (Rec: 11/18/18 15:09 LRN [id number]) Current Condition History of Current Condition Onset Date 4 weeks ago Current Complaints L elbow, R knee, neck and back pain. History of Current Condition Pt reports 4 weeks ago he had severe neck and back pain that has since resolved, but now is experiencing one week of L elbow and R knee pain. He believes his elbow hurts from having to remove snow/ice and that his knee hurts since he did some work at home requiring him to kneel. He wore a sling for 1 day and was told not to, so now he notes restricted mobility of the elbow. Prior Treatments and Tests X-rays of mid and low back. Pt reports Cervical X-rays 2 years ago (not verified). Future Testing and Treatments Planned None Treatment Goals Patient/Caregiver Goals Pt goals: To be placed on a HEP with specfic directions for how to exercise (weights, reps, etc.). To be able to move the L arm without tightness or pain. To be able to stand and walk without pain. Prior Functional Status Baseline Function- ADL's Independent Baseline Function- Mobility Independent Baseline Function- Recreation/Hobbies Exercised almost daily walking 1-1.5 miles and strengthening . Current Functional Impairments (Reported) Functional Limitations- ADL's Not able to participate in home exercises due to L arm limitation and R knee pain. Functional Limitations- Mobility/Gait Pain in R knee with first standing and gait. Personal Factors Other Personal Factors That May Effect Pacemaker Therapy/Recovery Lumbar disc degeneration and retrolisthesis L2 on L3 and L3 on L4. PT-OP-C Subjective Start: 11/18/18 09:48 Freq: Status: Active Protocol: Document 12/05/18 07:30 AMB (Rec: 12/05/18 07:44 AMB [id number]) OP-PT Subjective Patient Comments Patient Comments Pt's swelling is better, has been walking, but has not gotten back to his regular exercise routine. PT-OP-F Manual Assessment Start: 11/18/18 09:48 Freq: Status: Active Protocol: Document 11/18/18 11:19 LRN (Rec: 11/19/18 12:23 LRN [id number]) Manual Assessments Soft Tissue Assessment Soft Tissue Mobility Assessment Tightness and tenderness of L proximal anterior compartment of the forearm. He has a well healed scar in the anterior aspect of the forearm due to a prior surgery to remove a bone chip. PT-OP-H Neuro Start: 11/18/18 09:48 Freq: Status: Active Protocol: Document 11/18/18 11:19 LRN (Rec: 11/19/18 12:23 LRN [id number]) Sensation Evaluation Gross Sensation Gross Sensation WNL Comments Summary Comments Sensation is intact to soft touch in UE's & LE's. Deep Tendon Reflex & Clonus Assessment Deep Tendon Reflex Bilateral Achilles Deep Tendon Reflex 0 Absent Bilateral Patellar Deep Tendon Reflex 3+ Normal But Brisk Bilateral Tricep Deep Tendon Reflex 2+ Normal Bilateral Bicep Deep Tendon Reflex 2+ Normal Bilateral Brachioradialis Deep Tendon Reflex 1+ Diminished PT-OP-J Posture/Palpation/Skin Start: 11/18/18 09:48 Freq: Status: Active Protocol: Document 11/18/18 11:19 LRN (Rec: 11/19/18 12:23 LRN [id number]) Posture Evaluation Comments Posture Comments In standing: Pt has very wide stance (~1 foot), mild decreased cervical & lumbar lordosis with mild posterior rotation of the pelvis. His COG appears to be more forward of midline. He has a mild C- curve in the mid thoracic region with the apex on the left. Palpation Assessment Location R knee Palpation Location Supra-patellar Palpation Findings Tenderness Palpation Details Mild tenderness ~midline of patella L elbow Palpation Location Wrist flexors and extensors adjacent to biceps tendon Palpation Findings Soft Tissue Tightness Tenderness PT-OP-K Range of Motion Start: 11/18/18 09:48 Freq: Status: Active Protocol: Document 11/18/18 11:19 LRN (Rec: 11/19/18 12:23 LRN [id number]) Cervical Spine Range of Motion Cervical Spine Active Degrees Testing Position Sitting Rotation Left 45 Rotation Right 45 Lumbar Spine Range of Motion Lumbar Spine Active Degrees Testing Position Standing Flexion 65 Extension 15 Rotation Left 30 Rotation Right 20 Lateral Flexion Left 13 Lateral Flexion Right 10 ROM Limitations Bony Restriction Pain Elbow/Forearm Range of Motion Elbow/Forearm Measured in Degrees Right Active ROM Testing Position Sitting Elbow Flexion (degrees) 142 Left Active ROM Testing Position Sitting Elbow Flexion (degrees) 124 Elbow/Forearm ROM Limitations Elbow/Forearm ROM Limitations Soft Tissue Tightness Knee Goniometric Range of Motion Knee Measured in Degrees Right Knee ROM WFL Yes Patient Position Supine Flexion Active (degrees) 130 Extension Active (degrees) 0 Left Knee ROM WFL Yes Patient Position Supine Flexion Active (degrees) 130 Extension Active (degrees) 0 PT-OP-M Strength Start: 11/18/18 09:48 Freq: Status: Active Protocol: Document 11/18/18 11:19 LRN (Rec: 11/19/18 12:23 LRN [id number]) Cervical Spine Strength Cervical Spine Manual Muscle Testing Testing Position Sitting Reason Not Measured WFL Shoulder Strength Shoulder Manual Muscle Testing Right Reason Not Measured WFL Left Reason Not Measured WFL Elbow/Forearm Strength Elbow and Forearm Manual Muscle Testing Left Flexion (C6) 5 Normal Extension (C7) 5 Normal Wrist Strength Wrist Manual Muscle Testing Left Flexion (C7) 5 Normal Extension (C6) 5 Normal Comments Pain in muscle bellies. Knee Strength Knee Manual Muscle Testing Right Reason Not Measured WFL Comments Slight pain R suprapatella, midline Left Reason Not Measured WFL PT-OP-T Assessment and Plan Start: 11/18/18 09:48 Freq: Status: Active Protocol: Document 01/24/19 15:44 AMB (Rec: 01/24/19 15:46 AMB [id number]) Physical Therapy Assessment Assessment Summary Assessment Simone was instructed in a HEP and then went to see an orthopedic surgeon regarding his UE pain. He has not contacted us since, therefore he is discharged.
== END 2018-12-05 14:20 ==
LOC: PHYS 07:30
PROVIDERS: PCP Family Medicine; Visit Provider Family Medicine
DX: M54.2 Cervicalgia (principal); M54.9 Dorsalgia, unspecified
CPT/HCPCS: 97110; 97162; 97530; 97535

== ENCOUNTER → 2019-02-25 08:14 | Outpatient (CLI) | payer OTHER, SELFPAY ==
[2019-02-25 10:49] LABS: Alanine Aminotransferase 36 IU/L (21-72); Albumin 4.1 g/dL (3.5-5.0); Albumin Globulin Ratio 1.3 (1.0-2.8); Alkaline Phosphatase 90 U/L (38-126); Aspartate Aminotransferase 39 IU/L (17-59); Bilirubin Total 0.9 mg/dL (0.2-1.3); Blood Urea Nitrogen 21 mg/dL (9-20); Calcium 9.4 mg/dL (8.4-10.2); Carbon Dioxide 30 mmol/L (22-32); Chloride 102 mmol/L (98-107); Cholesterol 130 mg/dL (140-199); Estimated Glomerular Filt Rate > 60.0 mL/min (>60); Globulin 3.2 g/dL (1.7-4.1); Glucose 82 mg/dL (80-110); HDL Cholesterol 40 mg/dL (40-60); HEMOLYSIS < 15 (0-50); LDL Cholesterol Calculated 77 mg/dL (<100); Sodium 140 mmol/L (137-145); Total Protein 7.3 g/dL (6.3-8.2); Triglycerides 66 mg/dL (35-150)
[2019-02-25 11:13] LABS: Prostate Specific Antigen Scrn 2.05 ng/mL (0.1-4.0)
== END ==
PROVIDERS: PCP Family Medicine; Visit Provider Family Medicine
DX: E78.5 Hyperlipidemia, unspecified (principal); I10 Essential (primary) hypertension; Z12.5 Encounter for screening for malignant neoplasm of prostate
CPT/HCPCS: 36415; 80053; 80061; G0103

== ENCOUNTER → 2019-11-18 14:47 | Outpatient (CLI) | payer OTHER, SELFPAY ==
--- NOTE | 2019-11-18 14:49 | DI.RAD.S_ITS ---
PROCEDURE: XR FOOT LT MIN 3V INDICATIONS: left foot swelling TECHNIQUE: 3 views of the foot were acquired. COMPARISON: [facility], , FOOT 3V RIGHT, 11/28/2013, 10:07. FINDINGS: Bones: No fractures or dislocations. No suspicious bony lesions. Soft tissues: No tibiotalar joint effusion. Achilles tendon appears normal. There is soft tissue swelling involving the left forefoot. Findings are predominantly centered at the level of the metatarsophalangeal joint. IMPRESSION: Left forefoot soft tissue swelling without underlying fracture or dislocation. If there are persistent symptoms or clinical suspicion for pathology, then repeat radiographs or advanced imaging (CT, MRI or bone scan) should be considered for further evaluation. Dictated by: Fredi Barrientos M.D. on 11/18/2019 at 17:21 Approved by: Fredi Barrientos M.D. on 11/18/2019 at 17:23
[2019-11-18 16:00] LABS: Add Manual Diff / Slide Review NO; Basophils Absolute Auto 0 /uL (0-100); Basophils Percent Auto 0.3 % (0-2); Eosinophils Absolute Auto 200 /uL (0-450); Eosinophils Percent Auto 3.3 % (2-4); Hematocrit 43.5 % (41-53); Hemoglobin 14.6 g/dL (13.5-17.5); Lymphocytes Absolute Auto 1100 /uL (1100-4500); Lymphocytes Percent Auto 18.7 % (25-40); Mean Corpuscular HGB Conc 33.6 % (30-36); Mean Corpuscular Volume 95.3 fL (80-100); Monocytes Absolute Auto 700 /uL (0-900); Monocytes Percent Auto 11.3 % (3-14); Neutrophils Absolute Auto 4100 /uL (1500-7000); Neutrophils Percent Auto 66.4 % (50-75); Platelet Count 143 X10^3/uL (150-400); Red Blood Cell Count 4.56 X10^6/uL (4.5-5.9); Red Cell Distribution Width 13.4 % (11.6-14.8); White Blood Cell Count 6.1 X10^3/uL (4.5-11.0)
[2019-11-18 16:17] LABS: Erythrocyte Sedimentation Rate 15 MM/HR (0-15)
[2019-11-18 16:20] LABS: Uric Acid 4.9 mg/dL (3.5-8.5)
== END ==
PROVIDERS: PCP Family Medicine; Referring Provider Family Medicine; Visit Provider Family Medicine
DX: M79.672 Pain in left foot (principal)
CPT/HCPCS: 36415; 73630; 84550; 85025; 85651

== ENCOUNTER → 2020-01-08 11:03 | Outpatient (CLI) | payer OTHER, SELFPAY ==
--- NOTE | 2020-01-08 11:19 | DI.CT.S_ITS ---
PROCEDURE: CT LE LT W CON INDICATIONS: swollen ankle TECHNIQUE: Noncontrast 1-1.5 mm axial sections acquired from above the tibiotalar joint to the bottom of the calcaneus, with coronal and sagittal reformats. COMPARISON: [facility], CR, XR FOOT LT MIN 3V, 11/18/2019, 15:00. FINDINGS: Image quality: Excellent. Bones: No fracture or focal osseous destruction. There is anatomic alignment. A small bone island seen in the third metatarsal head. Soft tissues: Scattered vascular calcifications. Circumferential hindfoot subcutaneous edema, nonspecific IMPRESSION: No definite or displaced fracture identified. Diffuse hindfoot soft tissue swelling, nonspecific. If the patient's pain or other symptoms persist, consider further evaluation with MRI Dictated by: Eduardo Stallworth M.D. on 01/08/2020 at 11:55 Approved by: Eduardo Stallworth M.D. on 01/08/2020 at 12:08
== END ==
PROVIDERS: PCP Family Medicine; Referring Provider Family Medicine; Visit Provider Family Medicine
DX: M25.572 Pain in left ankle and joints of left foot (principal); M79.89 Other specified soft tissue disorders
CPT/HCPCS: 73700

== ENCOUNTER → 2020-06-10 08:14 | Outpatient (CLI) | payer OTHER, SELFPAY ==
[2020-06-10 08:41] LABS: Add Manual Diff / Slide Review NO; Basophils Absolute Auto 0 /uL (0-100); Basophils Percent Auto 0.6 % (0-2); Eosinophils Absolute Auto 100 /uL (0-450); Eosinophils Percent Auto 1.9 % (2-4); Hematocrit 43.1 % (41-53); Hemoglobin 14.5 g/dL (13.5-17.5); Lymphocytes Absolute Auto 1100 /uL (1100-4500); Lymphocytes Percent Auto 19.9 % (25-40); Mean Corpuscular HGB Conc 33.6 % (30-36); Mean Corpuscular Volume 95.3 fL (80-100); Monocytes Absolute Auto 500 /uL (0-900); Monocytes Percent Auto 9.4 % (3-14); Neutrophils Absolute Auto 3700 /uL (1500-7000); Neutrophils Percent Auto 68.2 % (50-75); Platelet Count 127 X10^3/uL (150-400); Red Blood Cell Count 4.52 X10^6/uL (4.5-5.9); Red Cell Distribution Width 13.4 % (11.6-14.8); White Blood Cell Count 5.4 X10^3/uL (4.5-11.0)
[2020-06-10 09:14] LABS: Alanine Aminotransferase 29 IU/L (<50); Albumin 4.1 g/dL (3.5-5.0); Albumin Globulin Ratio 1.5 (1.0-2.8); Alkaline Phosphatase 85 U/L (38-126); Aspartate Aminotransferase 40 IU/L (17-59); BUN Creatinine Ratio 19.6 (6-22); Bilirubin Total 0.8 mg/dL (0.2-1.3); Blood Urea Nitrogen 22 mg/dL (9-20); Calcium 9.2 mg/dL (8.4-10.2); Carbon Dioxide 26 mmol/L (22-32); Chloride 105 mmol/L (98-107); Cholesterol 123 mg/dL (140-199); Estimated Glomerular Filt Rate > 60.0 mL/min (>60); Globulin 2.8 g/dL (1.7-4.1); Glucose 89 mg/dL (80-110); HDL Cholesterol 51 mg/dL (40-60); HEMOLYSIS < 15 (0-50); LDL Cholesterol Calculated 60 mg/dL (<100); Potassium 4.3 mmol/L (3.4-5.1); Sodium 138 mmol/L (137-145); Total Protein 6.9 g/dL (6.3-8.2); Triglycerides 62 mg/dL (35-150)
== END ==
PROVIDERS: PCP Family Medicine; Referring Provider Family Medicine; Visit Provider Family Medicine
DX: E78.2 Mixed hyperlipidemia (principal)
CPT/HCPCS: 36415; 80053; 80061; 85025

== ENCOUNTER → 2020-07-29 08:23 | Outpatient (CLI) | payer OTHER, SELFPAY ==
[2020-07-29 09:34] LABS: Cholesterol 171 mg/dL (140-199); HDL Cholesterol 49 mg/dL (40-60); LDL Cholesterol Calculated 108 mg/dL (<100); Triglycerides 68 mg/dL (35-150)
[2020-07-29 09:56] LABS: Prostate Specific Antigen Scrn 3.43 ng/mL (0.1-4.0)
== END ==
PROVIDERS: PCP Family Medicine; Referring Provider Family Medicine; Visit Provider Family Medicine
DX: E78.2 Mixed hyperlipidemia (principal); N40.1 Benign prostatic hyperplasia with lower urinary tract symptoms; R35.1 Nocturia; Z12.5 Encounter for screening for malignant neoplasm of prostate
CPT/HCPCS: 36415; 80061; G0103

== ENCOUNTER → 2020-08-03 09:57 | Outpatient (CLI) | payer OTHER, SELFPAY ==
[2020-08-04 16:08] LABS: Fecal Immunochemical Test Negative (Negative)
== END ==
PROVIDERS: PCP Family Medicine; Referring Provider Family Medicine; Visit Provider Family Medicine
DX: Z12.11 Encounter for screening for malignant neoplasm of colon (principal)
CPT/HCPCS: 82274

== ENCOUNTER → 2020-11-05 10:31 | Outpatient (CLI) | payer MEDICARE, SELFPAY ==
[2020-11-05] MEDS: COVID-19 VACC #1, MRNA(MOD) 100 MCG/0.5 ML VIAL IM (10:40)
== END ==
PROVIDERS: PCP Family Medicine; Visit Provider Internal Medicine
DX: Z23 Encounter for immunization (principal)
CPT/HCPCS: 0011A; 91301

== ENCOUNTER → 2020-12-03 10:45 | Outpatient (CLI) | payer MEDICARE, SELFPAY ==
[2020-12-03] MEDS: COVID-19 VACC #2, MRNA(MOD) 100 MCG/0.5 ML VIAL IM (10:50)
== END ==
PROVIDERS: PCP Family Medicine; Visit Provider Internal Medicine
DX: Z23 Encounter for immunization (principal)
CPT/HCPCS: 0012A; 91301

== ENCOUNTER → 2021-03-29 09:44 | Outpatient (CLI) | payer OTHER, SELFPAY ==
[2021-03-29 12:05] LABS: Cholesterol 180 mg/dL (140-199); HDL Cholesterol 51 mg/dL (40-60); LDL Cholesterol Calculated 117 mg/dL (<100); Triglycerides 62 mg/dL (35-150)
[2021-03-29 18:20] LABS: Prostate Specific Antigen 3.16 ng/mL (0.10-4.00)
== END ==
PROVIDERS: PCP Family Medicine; Referring Provider Family Medicine; Visit Provider Family Medicine
DX: E78.2 Mixed hyperlipidemia (principal); N40.1 Benign prostatic hyperplasia with lower urinary tract symptoms; R35.1 Nocturia
CPT/HCPCS: 36415; 80061; 84153

== ENCOUNTER → 2021-06-20 09:59 | Outpatient (CLI) | payer OTHER, SELFPAY ==
[2021-06-20 12:41] LABS: Add Manual Diff / Slide Review NO; Basophils Absolute Auto 0 /uL (0-100); Basophils Percent Auto 0.5 % (0-2); Eosinophils Absolute Auto 100 /uL (0-450); Eosinophils Percent Auto 1.3 % (2-4); Hematocrit 44.6 % (41-53); Hemoglobin 15.1 g/dL (13.5-17.5); Lymphocytes Absolute Auto 800 /uL (1100-4500); Lymphocytes Percent Auto 14.8 % (25-40); Mean Corpuscular HGB Conc 33.8 % (30-36); Mean Corpuscular Hemoglobin 32.4 PG (26-34); Monocytes Absolute Auto 500 /uL (0-900); Monocytes Percent Auto 8.7 % (3-14); Neutrophils Absolute Auto 4100 /uL (1500-7000); Neutrophils Percent Auto 74.7 % (50-75); Platelet Count 125 X10^3/uL (150-400); Red Blood Cell Count 4.65 X10^6/uL (4.5-5.9); Red Cell Distribution Width 12.9 % (11.6-14.8); White Blood Cell Count 5.5 X10^3/uL (4.5-11.0)
[2021-06-20 13:03] LABS: Alanine Aminotransferase 23 IU/L (<50); Albumin 4.3 g/dL (3.5-5.0); Albumin Globulin Ratio 1.4 (1.0-2.8); Alkaline Phosphatase 73 U/L (38-126); Aspartate Aminotransferase 39 IU/L (17-59); BUN Creatinine Ratio 19.2 (6-22); Bilirubin Total 0.8 mg/dL (0.2-1.3); Blood Urea Nitrogen 20 mg/dL (9-20); Calcium 9.4 mg/dL (8.4-10.2); Carbon Dioxide 28 mmol/L (22-32); Chloride 106 mmol/L (98-107); Cholesterol 188 mg/dL (140-199); Estimated Glomerular Filt Rate > 60.0 mL/min (>60); Globulin 3.1 g/dL (1.7-4.1); Glucose 85 mg/dL (80-110); HDL Cholesterol 47 mg/dL (40-60); HEMOLYSIS < 15 (0-50); LDL Cholesterol Calculated 126 mg/dL (<100); Potassium 4.3 mmol/L (3.4-5.1); Sodium 139 mmol/L (137-145); Total Protein 7.4 g/dL (6.3-8.2); Triglycerides 75 mg/dL (35-150)
[2021-06-20 13:41] LABS: Prostate Specific Antigen Scrn 3.87 ng/mL (0.1-4.0)
== END ==
PROVIDERS: PCP Family Medicine; Referring Provider Family Medicine; Visit Provider Family Medicine
DX: N40.1 Benign prostatic hyperplasia with lower urinary tract symptoms (principal); E78.2 Mixed hyperlipidemia; Z12.5 Encounter for screening for malignant neoplasm of prostate; R35.0 Frequency of micturition
CPT/HCPCS: 36415; 80053; 80061; 85025; G0103

== ENCOUNTER → 2021-08-12 13:20 | Outpatient (CLI) | payer MEDICARE, SELFPAY ==
[2021-08-12] MEDS: COVID-19 VACC #3, MRNA(MOD) 50 MCG/0.25 ML VIAL IM (13:25)
== END ==
PROVIDERS: PCP Family Medicine; Visit Provider Internal Medicine
DX: Z23 Encounter for immunization (principal)
CPT/HCPCS: 0013A; 91301

== ENCOUNTER → 2022-02-24 09:46 | Outpatient (CLI) | payer OTHER, SELFPAY ==
[2022-02-24 10:30] LABS: Add Manual Diff / Slide Review NO; Basophils Absolute Auto 0 /uL (0-100); Basophils Percent Auto 0.5 % (0-2); Eosinophils Absolute Auto 100 /uL (0-450); Eosinophils Percent Auto 1.2 % (2-4); Hematocrit 42.9 % (41-53); Hemoglobin 14.8 g/dL (13.5-17.5); Lymphocytes Absolute Auto 1000 /uL (1100-4500); Lymphocytes Percent Auto 18.7 % (25-40); Mean Corpuscular HGB Conc 34.4 % (30-36); Mean Corpuscular Hemoglobin 32.7 PG (26-34); Monocytes Absolute Auto 500 /uL (0-900); Monocytes Percent Auto 10.7 % (3-14); Neutrophils Absolute Auto 3500 /uL (1500-7000); Neutrophils Percent Auto 68.9 % (50-75); Platelet Count 128 X10^3/uL (150-400); Red Blood Cell Count 4.52 X10^6/uL (4.5-5.9); Red Cell Distribution Width 13.5 % (11.6-14.8); White Blood Cell Count 5.1 X10^3/uL (4.5-11.0)
[2022-02-24 10:47] LABS: Erythrocyte Sedimentation Rate 8 MM/HR (0-15)
[2022-02-24 10:48] LABS: Alanine Aminotransferase 24 IU/L (<50); Albumin 4.2 g/dL (3.5-5.0); Albumin Globulin Ratio 1.4 (1.0-2.8); Alkaline Phosphatase 64 U/L (38-126); Aspartate Aminotransferase 40 IU/L (17-59); Bilirubin Total 0.7 mg/dL (0.2-1.3); Blood Urea Nitrogen 26 mg/dL (9-20); Calcium 9.1 mg/dL (8.4-10.2); Carbon Dioxide 31 mmol/L (22-32); Chloride 106 mmol/L (98-107); Estimated Glomerular Filt Rate 57 mL/min (>60); Globulin 3.1 g/dL (1.7-4.1); Glucose 78 mg/dL (80-110); HEMOLYSIS < 15 (0-50); Potassium 4.4 mmol/L (3.4-5.1); Sodium 140 mmol/L (137-145); Total Protein 7.3 g/dL (6.3-8.2)
== END ==
PROVIDERS: PCP Family Medicine; Referring Provider Family Medicine; Visit Provider Family Medicine
DX: R59.0 Localized enlarged lymph nodes (principal)
CPT/HCPCS: 36415; 80053; 85025; 85651

== ENCOUNTER → 2022-03-23 13:48 | Outpatient (CLI) | payer OTHER, SELFPAY ==
--- NOTE | 2022-03-23 13:49 | DI.US.S_ITS ---
PROCEDURE: US SOFT TISSUE HEAD AND NECK INDICATIONS: LOCALIZED ENLARGED LYMPH NODE TECHNIQUE: Real-time scanning was performed of the neck region of interest, with image documentation. COMPARISON: None. FINDINGS: Area palpable concern along the right jaw line demonstrates no mass lesion. No focal fluid collection or area of architectural distortion. There is a slightly heterogeneous appearance of the submandibular gland. IMPRESSION: No abnormal mass lesion within the area palpable concern. Submandibular gland is slightly heterogeneous in appearance. However, no discrete abnormality is identified. This is overall nonspecific and if concern persists, CT neck with contrast is recommended for further evaluation or visualization of the contralateral submandibular gland for comparison. Dictated by: Dianne Simpson M.D. on 03/23/2022 at 16:42 Approved by: Dianne Simpson M.D. on 03/23/2022 at 16:44
== END ==
PROVIDERS: PCP Family Medicine; Referring Provider Family Medicine; Visit Provider Family Medicine
DX: R59.0 Localized enlarged lymph nodes (principal)
CPT/HCPCS: 76536

== ENCOUNTER → 2022-05-31 11:34 | Outpatient (CLI) | payer OTHER, SELFPAY ==
--- NOTE | 2022-05-31 | DI.CT.S_ITS ---
PROCEDURE: CT THORACIC SPINE WO CON INDICATIONS: CHRONIC THORACIC BACK PAIN TECHNIQUE: Noncontrast 3 mm thick sections acquired through the region of interest in the thoracic spine. Sagittal and coronal reformats were then constructed. For radiation dose reduction, the following was used: automated exposure control. COMPARISON: None. FINDINGS: Image quality: Excellent. Bones: There is normal overall bony alignment. No acute vertebral body compression fractures. No suspicious sclerotic or lytic bony lesions. Central spinal canal is of normal overall caliber. T6-T7: Minimal central posterior disc protrusion. No canal stenosis. T7-T8: Minimal right paracentral disc protrusion without canal stenosis. T8-T9: Moderate central posterior disc protrusion abutting the cord without canal stenosis. T10-T11: Mild right paracentral disc protrusion without canal stenosis. T11-T12: Mild left paracentral disc protrusion without canal stenosis. Soft tissues: No paravertebral masses or hematomas. Visualized posteromedial lungs appear clear. Pacemaker. Cardiomegaly. IMPRESSION: 1. Multiple small thoracic disc protrusions as described above without canal stenosis. 2. No acute compression fractures. 3. Cardiomegaly, pacemaker. Dictated by: Miguel White M.D. on 05/31/2022 at 14:50 Approved by: Miguel White M.D. on 05/31/2022 at 14:56
== END ==
PROVIDERS: PCP Family Medicine; Referring Provider Physical Medicine & Rehabilitation Pain Medicine; Visit Provider Physical Medicine & Rehabilitation Pain Medicine
DX: M51.24 Other intervertebral disc displacement, thoracic region (principal); I51.7 Cardiomegaly; G89.29 Other chronic pain; Z95.0 Presence of cardiac pacemaker
CPT/HCPCS: 72128

== ENCOUNTER → 2022-06-23 10:25 | Outpatient (CLI) | payer OTHER, SELFPAY ==
[2022-06-23 13:16] LABS: BUN Creatinine Ratio 19.8 (6-22); Blood Urea Nitrogen 23 mg/dL (9-20); Estimated Glomerular Filt Rate > 60 mL/min (>60)
[2022-06-23 13:48] LABS: Prostate Specific Antigen 4.21 ng/mL (0.10-4.00)
== END ==
PROVIDERS: PCP Family Medicine; Referring Provider Family Medicine; Visit Provider Family Medicine
DX: N40.1 Benign prostatic hyperplasia with lower urinary tract symptoms (principal); N18.31 Chronic kidney disease, stage 3a; R35.0 Frequency of micturition; R35.1 Nocturia
CPT/HCPCS: 36415; 82565; 84153; 84520

== ENCOUNTER → 2023-03-13 17:17 | Outpatient (CLI) | payer OTHER, SELFPAY ==
[2023-03-13 18:10] LABS: Add Manual Diff / Slide Review NO; Basophils Absolute Auto 0 /uL (0-100); Basophils Percent Auto 0.4 % (0-2); Eosinophils Absolute Auto 100 /uL (0-450); Eosinophils Percent Auto 1.3 % (2-4); Hematocrit 40.4 % (41-53); Hemoglobin 13.8 g/dL (13.5-17.5); Lymphocytes Absolute Auto 1000 /uL (1100-4500); Lymphocytes Percent Auto 19.2 % (25-40); Mean Corpuscular HGB Conc 34.3 % (30-36); Mean Corpuscular Hemoglobin 32.4 PG (26-34); Mean Corpuscular Volume 94.3 fL (80-100); Monocytes Absolute Auto 500 /uL (0-900); Neutrophils Absolute Auto 3500 /uL (1500-7000); Neutrophils Percent Auto 70.1 % (50-75); Platelet Count 114 X10^3/uL (150-400); Red Blood Cell Count 4.28 X10^6/uL (4.5-5.9); Red Cell Distribution Width 13.5 % (11.6-14.8); White Blood Cell Count 5.1 X10^3/uL (4.5-11.0)
[2023-03-13 18:35] LABS: Alanine Aminotransferase 32 IU/L (<50); Albumin 4.2 g/dL (3.5-5.0); Albumin Globulin Ratio 1.6 (1.0-2.8); Alkaline Phosphatase 65 U/L (38-126); Aspartate Aminotransferase 46 IU/L (17-59); BUN Creatinine Ratio 17.9 (6-22); Bilirubin Total 0.8 mg/dL (0.2-1.3); Blood Urea Nitrogen 22 mg/dL (9-20); Calcium 9.4 mg/dL (8.4-10.2); Carbon Dioxide 28 mmol/L (22-32); Chloride 99 mmol/L (98-107); Estimated Glomerular Filt Rate 57 mL/min (>60); Globulin 2.6 g/dL (1.7-4.1); Glucose 79 mg/dL (80-110); HEMOLYSIS < 15 (0-50); Potassium 4.7 mmol/L (3.4-5.1); Sodium 133 mmol/L (137-145); Total Protein 6.8 g/dL (6.3-8.2)
[2023-03-13 19:05] LABS: Prostate Specific Antigen Scrn 3.92 ng/mL (0.1-4.0)
== END ==
PROVIDERS: PCP Family Medicine; Referring Provider Family Medicine; Visit Provider Family Medicine
DX: F32.9 Major depressive disorder, single episode, unspecified (principal); Z12.5 Encounter for screening for malignant neoplasm of prostate; F41.9 Anxiety disorder, unspecified; I49.5 Sick sinus syndrome; N18.31 Chronic kidney disease, stage 3a; R63.4 Abnormal weight loss; Z95.0 Presence of cardiac pacemaker
CPT/HCPCS: 36415; 80053; 85025; G0103

== ENCOUNTER → 2023-03-30 10:29 | Outpatient (CLI) | payer OTHER, SELFPAY ==
--- NOTE | 2023-03-30 10:32 | DI.RAD.S_ITS ---
PROCEDURE: XR CHEST 2V INDICATIONS: weight loss TECHNIQUE: 2 views of the chest were acquired. COMPARISON: [facility], , CHEST 1 VIEW, 09/24/2016, 7:03. FINDINGS: Surgical changes and devices: There is a cardiac pacemaker in expected position. Lungs and pleura: Hyperinflation consistent with COPD. Lungs are clear. No pleural effusions or pneumothorax. Mediastinum: Mediastinal contours are normal. Heart size is normal. Bones and chest wall: No suspicious bony abnormalities. Soft tissues appear unremarkable. IMPRESSION: 1. No acute cardiopulmonary disease. 2. COPD. Dictated by: Yves Maloney M.D. on 03/30/2023 at 13:50 Approved by: Yves Maloney M.D. on 03/30/2023 at 13:51
== END ==
PROVIDERS: PCP Family Medicine; Referring Provider Family Medicine; Visit Provider Family Medicine
DX: R19.5 Other fecal abnormalities (principal); J44.9 Chronic obstructive pulmonary disease, unspecified; R63.4 Abnormal weight loss; Z95.0 Presence of cardiac pacemaker
CPT/HCPCS: 71046

== ENCOUNTER → 2023-04-02 10:25 | Outpatient (CLI) | payer OTHER, SELFPAY ==
--- NOTE | 2023-04-02 10:26 | DI.CT.S_ITS ---
PROCEDURE: CT ABDOMEN PELVIS W CON INDICATIONS: colonography to assess for evidence of colon cancer. Soft stools. Elimination diet has not fixed to the problem. No surgical history. TECHNIQUE: After the administration of oral and IV contrast, axial sections were acquired from the lung bases to the pubic symphysis. Coronal and sagittal reformats were performed. For radiation dose reduction, the following was used: automated exposure control, adjustment of mA and/or kV according to patient size. COMPARISON: None. FINDINGS: Image quality: Excellent. Lung bases: Unremarkable. Heart: Cardiomegaly. Intravenous pacemaker lead terminates within the right ventricle. ABDOMEN: Liver: Unremarkable. Gallbladder: Unremarkable. Biliary ducts: Unremarkable. Pancreas: Unremarkable. Spleen: Unremarkable. Adrenal Glands: Unremarkable. Kidneys and Ureters: 1 centimeter hyperattenuating exophytic lesion on the posterior margin of the right kidney (series 2, image 18). No hydronephrosis. Stomach and Bowel: Mild thickening of the gastroesophageal junction, without associated adenopathy. No obstructing colonic mass identified. Peritoneum: No abnormal intraperitoneal fluid. No free air. Ventral Wall: No hernia. Abdominal Nodes: No retroperitoneal or mesenteric adenopathy by size criteria. Vessels: Aorta and inferior vena cava are normal in size. PELVIS: Pelvic Organs: Marked prostatomegaly. Bladder: Trabeculated bladder wall with bladder diverticulum Pelvic Nodes: No enlarged lymph nodes. Miscellaneous: No inguinal hernias are seen. Bones: Degenerative disc disease of the thoracolumbar spine. IMPRESSION: No obstructing colonic mass. Consider colonoscopy screening giving symptoms. Mild thickening of the GE junction, which could be from artifact, or indicate esophagitis or less likely mass. Consider direct visualization. Hyperattenuating right renal lesion measuring 1.0 centimeters, concerning for a small renal cell carcinoma. Recommend dedicated CT or MRI (renal mass protocol) for confirmation. Prostatomegaly with chronic outlet obstruction. Dictated by: Homer Williamson M.D. on 04/02/2023 at 12:59 Approved by: Homer Williamson M.D. on 04/02/2023 at 13:06
== END ==
PROVIDERS: PCP Family Medicine; Referring Provider Family Medicine; Visit Provider Family Medicine
DX: N28.9 Disorder of kidney and ureter, unspecified (principal); N40.0 Benign prostatic hyperplasia without lower urinary tract symptoms; N32.3 Diverticulum of bladder; N32.89 Other specified disorders of bladder; R19.5 Other fecal abnormalities; R15.1 Fecal smearing; I51.7 Cardiomegaly; M51.35 Other intervertebral disc degeneration, thoracolumbar region; Z95.0 Presence of cardiac pacemaker
CPT/HCPCS: 74177; Q9967

== ENCOUNTER 2023-04-04 12:00 | Day surgery (SDC) | payer OTHER, SELFPAY ==
[2023-04-04] VITALS (7 sets, daily range): BP systolic 87–125; BP diastolic 60–78; PULSE 62–76; RESP 12–23; TEMP 36.1; O2SAT 96–98; BMI 17.9
--- NOTE | 2023-04-04 | PATH_ITS ---
[facility] Accession Number: [id number] No. of containers..06 Tissue . 01 Material submitted: . PART A: duodenum - DUODENUM BIOPSY PART B: gastrointestinal site - ANTRUM BIOPSY PART C: gastrointestinal site - GASTRIC BODY BIOPSY PART D: colon - RIGHT COLON BIOPSY PART E: colon - ASCENDING COLON BIOPSY PART F: colon - LEFT COLON BIOPSY . 01 Diagnosis: A. Duodenum, Biopsy: Duodenal mucosa with no diagnostic abnormality. Negative for active inflammation, features of sprue, dysplasia, or malignancy. . B. Gastric Antrum, Biopsy: Gastric antral mucosa with no diagnostic abnormality. No evidence of Helicobacter organisms on H/E stain. Negative for intestinal metaplasia. Negative for dysplasia or malignancy. . C. Gastric Body, Biopsy: Gastric body mucosa with no diagnostic abnormality. No evidence of Helicobacter organisms on H/E stain. Negative for intestinal metaplasia. Negative for dysplasia or malignancy. . D-F. Right, Ascending, Left Colon, Biopsies: Colonic mucosa with no diagnostic abnormality. Negative for active, chronic, and microscopic colitis. Negative for dysplasia and malignancy. . [facility] 04/11/2023 1419 Local . 01 Electronically signed: . Randolph Siddiqui MD, PhD, Pathologist NPI- [id number] . 01 Gross description: . Part A: DUODENUM BIOPSY: Received in formalin is 2 fragment(s) of rangel, soft tissue measuring 0.3 x 0.2 x 0.2 cm to 0.2 x 0.2 x 0.2 cm submitted entirely in 1 cassette(s) Part B: ANTRUM BIOPSY: Received in formalin is 2 fragment(s) of rangel, soft tissue measuring 0.4 x 0.3 x 0.2 cm to 0.1 x 0.1 x 0.1 cm submitted entirely in 1 cassette(s) Part C: GASTRIC BODY BIOPSY: Received in formalin is 2 fragment(s) of rangel, soft tissue measuring 0.5 x 0.3 x 0.2 cm to 0.2 x 0.2 x 0.2 cm submitted entirely in 1 cassette(s) Part D: RIGHT COLON BIOPSY: Received in formalin is 2 fragment(s) of rangel, soft tissue measuring 0.4 x 0.2 x 0.2 cm to 0.3 x 0.2 x 0.1 cm submitted entirely in 1 cassette(s) Part E: ASCENDING COLON BIOPSY: Received in formalin is 1 fragment(s) of rangel, soft tissue measuring 0.4 x 0.2 x 0.2 cm submitted entirely in 1 cassette(s) Part F: LEFT COLON BIOPSY: Received in formalin is 2 fragment(s) of rangel, soft tissue measuring 0.3 x 0.2 x 0.1 cm to 0.2 x 0.2 x 0.2 cm submitted entirely in 1 cassette(s) /[facility] 04/09/2023 [facility]7 Local . 01 Pathologist provided ICD-10: R10.13, R19.4 . 01 CPT . 550676, 565226, 113536, [id number], [id number], [id number] Specimen Comment: A courtesy copy of this report has been sent to [phone] Performed at: 01 [facility] [address] [place] [address], [place], [place] [id number] MD Jesus Lazcano MD Phone: [phone]
[2023-04-04] MEDS: LACTATED RINGERS 1,000 ML 42 ML IV (12:38)
--- NOTE | 2023-04-04 12:40 | PM.PREOP ---
Pre-operative Note COVID-19 COVID-19 status: Not tested Interval Note History & Physical reviewed/Exam performed by Physician: Yes Changes to H&P: No ASA Class (for procedural sedation): III
--- NOTE | 2023-04-04 14:27 | PM.OP.EC ---
Operative Date/Time/Diagnoses Date of procedure: 04/04/23 Time of procedure: 14:27 Pre-op diagnosis: Change in bowel habits Post-op diagnosis: same Procedure & Clinicians Study performed: EGD and colonoscopy Same procedure as scheduled: Yes Surgeon: Boogie Higginbotham Procedure Notes Procedure in detail: Surgeon: Boogie Higginbotham MD Anesthesia: Danial Gerard CRNA Procedure in detail: A timeout was performed. A bite blocked was placed and monitors were attached to the patient. The patient was positioned in a left lateral decubitus position. Sedation was administered. Once the patient was sedated the endoscope was inserted through the bite block and passed through the esophagus and stomach and into the duodenum. The duodenal mucosa appeared normal. Random biopsies were taken from the duodenum. Bulb appeared normal.. We then withdrew the scope into the stomach. No abnormalities were seen but random biopsies were taken from the antrum. Random biopsies were also taken from the gastric body. The endoscope was retroflexed and hiatal hernia was seen. The endoscope was straightned and withdrawn into the esophagus. No other abnormalities were seen. Findings: Normal EGD Next we repositioned the patient for a colonoscopy. A digital rectal exam was performed and was normal. The colonoscope was inserted and advanced to the cecum. The appendiceal orifice was identified and photographed. The scope was slowly withdrawn over greater than 6 minutes. There was a 3 mm polyp in the ascending colon removed with the cold forceps. Random biopsies were taken from the right colon and left colon using forceps. Other abnormalities were seen. The scope was retroflexed in the rectum and no abnormalities were found. Findings: 3 mm polyp in the ascending colon EBL: 5 mL Scope withdrawal time: 8 minutes Sedation minutes: 25 minutes Post-procedure Disposition: PACU
== END 2023-04-04 15:20 | disposition home or self-care (01) ==
PROVIDERS: PCP Family Medicine; Referring Provider Surgery; Visit Provider Surgery
PROC: 0DJ08ZZ Inspection of Upper Intestinal Tract, Via Natural or Artificial Opening Endoscopic (ICD-10-PCS; CPT 43235; principal; 2023-04-04 13:00)
PROC: 0DJD8ZZ Inspection of Lower Intestinal Tract, Via Natural or Artificial Opening Endoscopic (ICD-10-PCS; CPT 45378; 2023-04-04 13:00)
DX: R19.4 Change in bowel habit (principal); R63.4 Abnormal weight loss
CPT/HCPCS: 45380; 43239; J2704

== ENCOUNTER → 2023-04-13 08:32 | Outpatient (CLI) | payer OTHER, SELFPAY ==
[2023-04-13 09:10] LABS: BUN Creatinine Ratio 16.7 (6-22); Blood Urea Nitrogen 22 mg/dL (9-20); Calcium 9.2 mg/dL (8.4-10.2); Carbon Dioxide 33 mmol/L (22-32); Chloride 99 mmol/L (98-107); Estimated Glomerular Filt Rate 52 mL/min (>60); Glucose 93 mg/dL (80-110); HEMOLYSIS < 15 (0-50); Potassium 4.3 mmol/L (3.4-5.1); Sodium 138 mmol/L (137-145)
--- NOTE | 2023-04-13 13:31 | DI.CT.S_ITS ---
PROCEDURE: CT ABDOMEN WO/W CON INDICATIONS: R renal lesion TECHNIQUE: Optional 5 mm thick noncontrast images acquired from the diaphragm to the iliac crests. After the administration of intravenous contrast, 5 mm thick images again acquired from the diaphragm to the iliac crests in the arterial and urographic phases. 5 mm thick coronal and sagittal reformats were then acquired. For radiation dose reduction, the following was used: automated exposure control, adjustment of mA and/or kV according to patient size. COMPARISON: [facility], CT, CT ABDOMEN PELVIS W CON, 04/02/2023, 12:04. FINDINGS: Lung bases: No pleural effusion. Genitourinary: Redemonstrated approximately 1.0 centimeter lesion exophytic from the right upper kidney (for example series 3, image 22). There is apparent enhancement on postcontrast images suspicious for a small solid mass. No hydronephrosis. Other solid organs: Liver is normal in size and enhancement. Gallbladder is unremarkable . Biliary system is non dilated. Pancreas enhances normally. Spleen is normal in size and enhancement. No adrenal nodules. Peritoneum and bowel: Visualized large and small bowel is non-dilated. No free air or substantial free fluid. Nodes and vessels: No retroperitoneal or mesenteric adenopathy by size criteria. Aorta and inferior vena cava are normal in caliber. Bones: Multilevel degenerative change of the visualized spine. IMPRESSION: Previously described exophytic lesion at the upper right kidney appears to enhance on postcontrast images, suspicious for a solid enhancing renal mass such as renal cell carcinoma. However, artifactual pseudo-enhancement can sometimes be observed in small lesions of this size. Could consider confirming that this finding represents a solid mass with additional imaging such as renal ultrasound before any definitive intervention is performed. Otherwise, attention on follow-up imaging is recommended. Dictated by: John Up M.D. on 04/13/2023 at 14:54 Approved by: John Up M.D. on 04/13/2023 at 15:05
== END ==
PROVIDERS: PCP Family Medicine; Referring Provider Family Medicine; Visit Provider Family Medicine
DX: Z01.812 Encounter for preprocedural laboratory examination (principal); N28.9 Disorder of kidney and ureter, unspecified; R93.421 Abnormal radiologic findings on diagnostic imaging of right kidney
CPT/HCPCS: 36415; 74170; 80048; Q9967

== ENCOUNTER → 2023-05-25 11:14 | Outpatient (CLI) | payer OTHER, SELFPAY ==
[2023-05-25 12:09] LABS: Add Manual Diff / Slide Review NO; Basophils Absolute Auto 0 /uL (0-100); Basophils Percent Auto 0.7 % (0-2); Eosinophils Absolute Auto 100 /uL (0-450); Eosinophils Percent Auto 1.7 % (2-4); Hematocrit 38.9 % (41-53); Hemoglobin 13.3 g/dL (13.5-17.5); Lymphocytes Absolute Auto 700 /uL (1100-4500); Lymphocytes Percent Auto 15.5 % (25-40); Mean Corpuscular HGB Conc 34.1 % (30-36); Mean Corpuscular Hemoglobin 33.2 PG (26-34); Mean Corpuscular Volume 97.3 fL (80-100); Monocytes Absolute Auto 500 /uL (0-900); Monocytes Percent Auto 10.2 % (3-14); Neutrophils Absolute Auto 3500 /uL (1500-7000); Neutrophils Percent Auto 71.9 % (50-75); Platelet Count 114 X10^3/uL (150-400); Red Cell Distribution Width 14.3 % (11.6-14.8); White Blood Cell Count 4.8 X10^3/uL (4.5-11.0)
[2023-05-25 14:20] LABS: Alanine Aminotransferase 27 IU/L (<50); Albumin 3.9 g/dL (3.5-5.0); Albumin Globulin Ratio 1.5 (1.0-2.8); Alkaline Phosphatase 61 U/L (38-126); Aspartate Aminotransferase 36 IU/L (17-59); BUN Creatinine Ratio 20.5 (6-22); Bilirubin Total 0.7 mg/dL (0.2-1.3); Blood Urea Nitrogen 23 mg/dL (9-20); Calcium 9.1 mg/dL (8.4-10.2); Carbon Dioxide 26 mmol/L (22-32); Chloride 104 mmol/L (98-107); Estimated Glomerular Filt Rate > 60 mL/min (>60); Globulin 2.6 g/dL (1.7-4.1); Glucose 90 mg/dL (80-110); HEMOLYSIS < 15 (0-50); Potassium 4.4 mmol/L (3.4-5.1); Sodium 137 mmol/L (137-145); Total Protein 6.5 g/dL (6.3-8.2)
== END ==
PROVIDERS: PCP Family Medicine; Referring Provider Family Medicine; Visit Provider Family Medicine
DX: D69.6 Thrombocytopenia, unspecified (principal); N18.31 Chronic kidney disease, stage 3a
CPT/HCPCS: 36415; 80053; 85025

== ENCOUNTER → 2023-09-10 14:58 | Outpatient (CLI) | payer OTHER, SELFPAY ==
--- NOTE | 2023-09-10 15:01 | DI.RAD.S_ITS ---
PROCEDURE: XR KNEE LT 3V INDICATIONS: lt knee pain TECHNIQUE: 3 views of the knee were acquired. COMPARISON: [facility], , KNEE 3V LEFT, 08/21/2007, 11:58. FINDINGS: Bones: No fractures or dislocations. No suspicious bony lesions. Moderate medial lateral compartmental joint space narrowing with stippled meniscal calcification present. Atherosclerotic vascular calcification. Severe patellofemoral joint space narrowing with calcification in the suprapatellar. Generalized decreased osseous mineralization noted. Soft tissues: No joint effusion. No suspicious soft tissue calcifications. IMPRESSION: Moderate osteoarthritis, chondrocalcinosis, osteopenia with possible suprapatellar loose body. Atherosclerosis Approved by: Reymundo Leach M.D. on 09/10/2023 at 18:57
--- NOTE | 2023-09-10 15:01 | DI.RAD.S_ITS ---
PROCEDURE: XR LUMBAR SPINE MIN 4V INDICATIONS: low back pain TECHNIQUE: 5 views of the lumbar spine were acquired, including bilateral oblique views. COMPARISON: [facility], CR, XR LUMBAR SPINE 2-3V, 11/11/2018, 14:54. FINDINGS: Bones: Convex right lumbar scoliosis. Diffuse disc space narrowing and hypertrophic facet joints noted throughout the exam particularly lower lumbar spine. Vertebral body height is maintained. Oblique images unremarkable. Soft tissues: Large amount of fecal debris noted throughout the colon and rectum Oblique images: No pars defects. IMPRESSION: Degenerative disc disease, arthropathy, scoliosis and osteopenia Large amount of fecal debris in the colon Approved by: Reymundo Leach M.D. on 09/10/2023 at 19:07
--- NOTE | 2023-09-10 15:01 | DI.RAD.S_ITS ---
PROCEDURE: XR KNEE RT 3V INDICATIONS: rt knee pain TECHNIQUE: 3 views of the knee were acquired. COMPARISON: [facility], , KNEE 3V LEFT, 08/21/2007, 11:58. FINDINGS: Bones: No fractures or dislocations. No suspicious bony lesions. Generalized decreased osseous mineralization noted. Severe patellofemoral and moderate medial lateral compartmental joint space narrowing with marginal osteophyte. Meniscal chondrocalcinosis noted as well. Soft tissues: Atherosclerotic vascular calcification noted. No joint effusion IMPRESSION: Osteoarthritis, osteopenia and calcific atherosclerosis. Approved by: Reymundo Leach M.D. on 09/10/2023 at 18:59
== END ==
PROVIDERS: PCP Family Medicine; Referring Provider Anesthesiology; Visit Provider Anesthesiology
DX: I70.203 Unspecified atherosclerosis of native arteries of extremities, bilateral legs (principal); M17.0 Bilateral primary osteoarthritis of knee; M51.36 Other intervertebral disc degeneration, lumbar region; M11.262 Other chondrocalcinosis, left knee; M47.816 Spondylosis without myelopathy or radiculopathy, lumbar region; M85.89 Other specified disorders of bone density and structure, multiple sites; M41.9 Scoliosis, unspecified; M25.562 Pain in left knee; M25.561 Pain in right knee; M54.50 Low back pain, unspecified; G89.29 Other chronic pain
CPT/HCPCS: 72110; 73562

== ENCOUNTER → 2023-10-03 12:42 | Outpatient (CLI) | payer OTHER, SELFPAY ==
--- NOTE | 2023-10-03 12:44 | DI.CT.S_ITS ---
PROCEDURE: CT ABDOMEN RENAL PROTOCOL INDICATIONS: Follow-up right renal lesion TECHNIQUE: Optional 5 mm thick noncontrast images acquired from the diaphragm to the iliac crests. After the administration of intravenous contrast, 5 mm thick images again acquired from the diaphragm to the iliac crests in the arterial and urographic phases. 5 mm thick coronal and sagittal reformats were then acquired. For radiation dose reduction, the following was used: automated exposure control, adjustment of mA and/or kV according to patient size. COMPARISON: [facility], CT, CT THORACIC SPINE WO CON, 05/31/2022, 11:42. [facility], CT, CHEST ABDOMEN PELVIS WITH CONTRAST, 05/20/2009, 13:30. [facility], CT, CT ABDOMEN WO/W CON, 04/13/2023, 13:55. FINDINGS: Image quality: Diagnostic. Kidneys and Ureters: Right kidney superior pole exophytic mass measuring 1 cm, (12/26), unchanged since at least 05/31/2022. Not seen in 2008. No kidney stones. No hydronephrosis. No ureteral filling defect in the upper ureters. OTHER: Lung bases: Unremarkable. Heart: Prominent size. Pacemaker leads. Liver: No solid mass. Gallbladder: Decompressed. Biliary ducts: No biliary dilation. Pancreas: No ductal dilation. Spleen: Size is within normal limits. Adrenal Glands: No adrenal nodules. Stomach and Bowel: Normal colonic caliber, without significant wall thickening. Peritoneum: No abnormal intraperitoneal fluid. No free air. Ventral Wall: No hernia. Abdominal Nodes: No retroperitoneal or mesenteric adenopathy by size criteria. Vessels: Aorta and inferior vena cava are normal in size. Bones: No aggressive osseous abnormality. Multilevel DDD. IMPRESSION: 1. Right kidney superior pole mass measuring 1 cm is unchanged in size since at least 05/31/2022. 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 Consider follow-up renal MRI. 2. No adenopathy. No metastatic disease demonstrated. 3. No kidney stones. No hydronephrosis. Dictated by: Junior Warner M.D. on 10/03/2023 at 15:38 Approved by: Junior Warner M.D. on 10/03/2023 at 15:48
[2023-10-03 13:14] LABS: Estimated Glomerular Filt Rate 52 mL/min (>60)
== END ==
PROVIDERS: Specialist; PCP Family Medicine; Referring Provider Urology; Visit Provider Urology
DX: N28.89 Other specified disorders of kidney and ureter (principal); N28.9 Disorder of kidney and ureter, unspecified
CPT/HCPCS: 36415; 74170; 82565; Q9967

== ENCOUNTER 2023-12-20 13:00 | Outpatient (RCR) | payer OTHER, SELFPAY ==
--- NOTE | 2023-12-05 16:30 | PT.OIE ---
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 ADHD (attention deficit hyperactivity disorder) (1935) Anxiety about health Basal cell carcinoma Bilateral foot pain Bilateral knee pain Bilateral lower extremity edema Cardiac arrhythmia (2005) Cataract (2011) Change in consistency of stool Chicken pox (194) Chronic back pain (1969) Chronic bilateral low back pain without sciatica Chronic pain of right wrist Chronic right-sided low back pain without sciatica CKD stage G3a/A1, GFR 45-59 and albumin creatinine ratio <30 mg/g Elevated PSA (2007) Enlarged lymph node in neck Fecal incontinence (2011) Foot joint stiffness, bilateral Frequent UTI Hearing loss (1994) Hypertension (2000) Incomplete emptying of bladder Keratotic lesion Kidney stones (1960) Left ankle pain Lesion of right redding kidney correction current use of anticoagulant therapy (12/2016) Low back pain Lower urinary tract symptoms Lumbar region somatic dysfunction Lumbar spondylosis Measles (1940) Nocturia more than twice per night Osteoarthritis (arthritis due to wear and tear of joints) Osteoarthritis of knees, bilateral Pelvic somatic dysfunction Retinal detachment (1993) Right knee pain Sacral region somatic dysfunction Skull fracture (1939) Somatic dysfunction of lower extremity Squamous cell carcinoma Strain of abdominal muscle Tachy-abraham syndrome Tinnitus (~2005) Upper extremity somatic dysfunction Vertigo Past Surgical History (Last Reviewed 10/15/23 @ 17:04 by Beni Leija MD) Anesthesia History of cranial surgery (1939) History of nephrolithotomy with removal of calculi (1960) Visit Care Team Role Provider Type Germán Koo MD Family Provider Physician Primary Care Provider Specialty: Family Practice Address: [address] [place] [address], [id number] Email: [email or web address] Courtney Barksdale DPM Attending Provider Physician Referring Provider Specialty: Orthopedics Orthopedic Surgery Podiatry Address: [address] [place] [address], [id number] Email: [email or web address] Physical Therapy Initial Evaluation PT-OP-A Visit Information Start: 12/05/23 13:46 Freq: Status: Active Protocol: Document 12/05/23 13:47 NM (Rec: 12/05/23 17:55 NM [id number]) Out-Patient Physical Therapy Visit Information Visit Information Visit Type Initial Evaluation Visit Start Time 13:47 Visit Stop Time 14:32 Visit Number 1 Evaluation Information Evaluation Date 12/05/23 Precautions Precautions Pacemaker PT-OP-B Current Condition Start: 12/05/23 13:46 Freq: Status: Active Protocol: Document 12/05/23 13:47 NM (Rec: 12/05/23 17:55 NM [id number]) Current Condition History of Current Condition Onset Date 6 months ago Current Complaints pain, weakness, difficulty walking History of Current Condition Pt presents with R foot/ankle pain pain. No known JONNY, but reports feeling it on his normal walk. Pt states pain is present primarily along his R lateral ankle, wrapping to front when present. He also reports pain near heel, along arch, laterally. Had a previous episode several months ago that was very painful but relieved with medication. Pt attributes pain partially to shoe choice. He does not know if previous ankle sprain, but has a binder of exercises for ankle sprain rehab. Currently: no regular walking (<30 min/day), reports can do shopping/ADLs without difficulty. Ankle pain is worse with going down stairs, hills. He also reports worsening balance, decreased proprioception. Reports more his R swollen ankle over the last month, thinks bad circulation because it's bilateral. Numbness in foot only with driving, no other reported instances. Pt is currently moving; he is active and does light weight lifting in supine/sitting daily. Previously, pt was using a lateral wedge in his shoe issued by Dr. Solo but has not been wearing it because it doesn't help Prior Treatments and Tests Pt reports no previous PT or imaging related to this episode of ankle/foot pain Current Functional Impairments (Reported) Functional Limitations- Mobility/Gait Unable to ambulate for 30 minutes due to pain. No difficulty with shopping or other ADLs Functional Limitations- Recreation/ Limited ability to perform Hobbies yard work PT-OP-C Subjective Start: 12/05/23 13:46 Freq: Status: Active Protocol: Document 12/05/23 13:47 NM (Rec: 12/05/23 17:55 NM [id number]) OP-PT Subjective Patient Comments Patient Comments see hx above for pt report Patient Questionnaires Foot & Ankle Ability Measure- ADL and Sports FAAM-ADL Score 57/84 FAAM-Sport Score 13/32 Lower Extremity Functional Scale LEFS Score 55/80 OP-PT Pain Assessment Pain Assessment Grid Paper Pain Assessment Grid Completed Yes Location R ankle/foot Pain Location Details lateral ankle under malleolus Intensity 1 Scale Used Numeric (0 - 10) Description- Other worst 3-4, 9 with bad episode Frequency Intermittent Pain Duration inconsistent Radiating Location prn to anterior ankle near jiont line Pain Aggravating Factors Activity,Standing,Walking Other Pain Aggravating Factors yard work, walk 10-15 min Pain Alleviating Factors None Other Pain Alleviating Factors comes and goes Home Pain Medication Use Pain Medications Used Yes: ibuprofen Pain Behaviors Pain Behaviors Holding Area PT-OP-D Balance Start: 12/05/23 13:46 Freq: Status: Active Protocol: Document 12/05/23 13:47 NM (Rec: 12/05/23 17:55 NM [id number]) Balance Tests Single Limb Standing Single Limb- Right 8 seconds; no pain, decreased stability Single Limb- Left 10 seconds; decreased stability Tandem Tandem Standing 10 seconds, increased sway PT-OP-E Functional Tests Start: 12/05/23 13:46 Freq: Status: Active Protocol: Document 12/05/23 13:47 NM (Rec: 12/05/23 17:55 NM [id number]) Functional Tests Five Times Sit to Stand Test Score 8 seconds Comments no pain, decreased dorsiflexion bilaterally Squat Test Score 10 Comments decreased dorsiflexion, increased tibial fwd, pronation, fwd trunk PT-OP-F Manual Assessment Start: 12/05/23 13:46 Freq: Status: Active Protocol: Document 12/05/23 13:47 NM (Rec: 12/05/23 17:55 NM [id number]) Manual Assessments Soft Tissue Assessment Soft Tissue Mobility Assessment No restrictions of R Achilles, but atrophy of all ankle muscles. Joint Mobility Assessment Joint Mobility Assessment No ligamentous instability, subluxation. Decreased R toe extension mobility. Decreased ankle mobility bilaterally, R> L. Adduction of B 5th toes PT-OP-G Mobility & Gait Start: 12/05/23 13:46 Freq: Status: Active Protocol: Document 12/05/23 13:47 NM (Rec: 12/05/23 17:55 NM [id number]) OP Gait Assessment Gait Gait Assistance Required: Independent Distance (Feet) 200 Assistive Devices Assistive Device None Gait Deviations General Gait Pattern Antalgic,Decreased Stride Length,Decreased Feet Clearance Factors Limiting Gait Function Factors Limiting Gait Function Decreased Activity Tolerance, Decreased Strength,Limited Range of Motion,Pain,Poor Balance Comments Gait Comments Increased toe out bilaterally, pronation. Limited dorsiflexion PT-OP-H Neuro Start: 12/05/23 13:46 Freq: Status: Active Protocol: Document 12/05/23 13:47 NM (Rec: 12/05/23 17:55 NM [id number]) Sensation Evaluation Gross Sensation Gross Sensation WNL Comments Summary Comments BLE intact to light touch sensation equally PT-OP-J Posture/Palpation/Skin Start: 12/05/23 13:46 Freq: Status: Active Protocol: Document 12/05/23 13:47 NM (Rec: 12/05/23 17:55 NM [id number]) Posture Evaluation Position Standing Head/C-Spine Posture Forward Head T-Spine Posture Increased Kyphosis L-Spine Posture Increased Lordosis Pelvis Posture Anteriorly Tilted Hip Posture (L) Externally Rotated,(R) Externally Rotated Knee Posture (L) Genu Valgus,(R) Genu Valgus Patellar Posture (L) Superior,(R) Superior Ankle/Foot Posture (L) Pronated,(R) Pronated Foot Arch (L) Low Arch,(R) Low Arch Toe Posture (L) Flexed Toes,(R) Flexed Toes Comments Posture Comments Bilateral tailor's bunion Palpation Assessment Location R ankle/foot Palpation Location lateral ankle, B malleoli, rays 1-5, tarsals, calcaneus Palpation Findings Soft Tissue Tightness, Tenderness Palpation Details Tenderness inferior to lateral malleoli. No tenderness of B malleoli. No tenderness along metatarsals, calcaneus, Achilles, proximal fibula, or tibia. No tenderness of plantar fascia Skin Assessment Circumference Measurement Circumference of malleoli Location R ankle 27.5 cm, L ankle 27 cm Figure 8 Location R ankle 54 cm, L ankle 52 cm Other Assessments Skin Assessment Comments Increased edema along medial malleoli bilaterally, mild pitting. Increased rubor in BLE with dependency PT-OP-K Range of Motion Start: 12/05/23 13:46 Freq: Status: Active Protocol: Document 12/05/23 13:47 NM (Rec: 12/05/23 17:55 NM [id number]) Hip Goniometric Range of Motion Hip Right Flexion w/Knee Flexed 105 Left Flexion w/Knee Flexed 110 Knee Goniometric Range of Motion Knee Right Flexion Active (degrees) 125 Extension Active (degrees) 0 Left Flexion Active (degrees) 125 Extension Active (degrees) 0 Ankle and Foot Goniometric Range of Motion Ankle and Foot Right Dorsiflexion with Knee Flexed 8 Dorsiflexion with Knee Extended 5 Plantarflexion 30 Inversion 10 Eversion 5 Comments No pain with AROM but limited globally Left Dorsiflexion with Knee Flexed 10 Dorsiflexion with Knee Extended 15 Plantarflexion 30 Inversion 10 PT-OP-L Special Tests Start: 12/05/23 13:46 Freq: Status: Active Protocol: Document 12/05/23 13:47 NM (Rec: 12/05/23 17:55 NM [id number]) Special Tests Foot/Ankle Special Tests Windlass Test Results - Carey Test Results - Forced Dorsiflexion Impingement Test Results - Comments No impingement but reports increased pain under lateral malleolus with pressure along subtalar joint Talar Tilt Test Results - Anterior drawer Test Results - PT-OP-M Strength Start: 12/05/23 13:46 Freq: Status: Active Protocol: Document 12/05/23 13:47 NM (Rec: 12/05/23 17:55 NM [id number]) Hip Strength Hip Manual Muscle Testing Right Flexion (L2) 4 Good Extension (S1) 4 Good Abduction 4 Good Adduction 4 Good External Rotation 4 Good Internal Rotation 4 Good Left Flexion (L2) 4 Good Extension (S1) 4 Good Abduction 4 Good Adduction 4 Good External Rotation 4 Good Internal Rotation 4 Good Knee Strength Knee Manual Muscle Testing Right Flexion (S2) 4 Good Extension (L3) 4 Good Left Flexion (S2) 4 Good Extension (L3) 4 Good Ankle/Foot Strength Ankle and Foot Manual Muscle Testing Right Dorsiflexion (L4) 4- Good- Plantarflexion (S1) 4- Good- Inversion 4- Good- Eversion (S1) 4- Good- Comments 10 bilateral heel raises, unable to perform single heel raise Left Dorsiflexion (L4) 4 Good Plantarflexion (S1) 4 Good Inversion 4 Good Eversion (S1) 4 Good Comments 10 bilateral heel raises, unable to perform single heel raise Toe Strength Toe Manual Muscle Testing Right Great Toe Flexion 4 Good Extension 4 Good Left Great Toe Flexion 4 Good Extension 4 Good PT-OP-Q Treatments Start: 12/05/23 13:46 Freq: Status: Active Protocol: Document 12/05/23 13:47 NM (Rec: 12/05/23 17:55 NM [id number]) Therapeutic Exercises Sitting Exercises Ankle ABCs Sitting Exercise Name long sitting, added to HEP Side bilateral Resistance AROM Reps/Minutes 1 rep ea Comments monitored for pain, no pain reported with mobility Standing Exercises calf stretch Standing Exercise Name 1. gastrocnemius, 2. soleus; added to HEP Side bilateral Equipment Used staggered stance, wall for UE support Reps/Minutes 1x30 ea Comments cued heel on ground during stretch Self-Care/Home Management Treatment Education Patient Education Home Exercise Program,Joint Protection,Pain Management Other Education 8 minutes: Educated on HEP, provided handout with ankle ABCs and standing gastrocnemius/soleus stretch for improved ankle mobility. Educated on modalities for pain relief as needed. Initiated conversation about proper shoewear/fit, use of insoles for additional support ; will follow up in future sessions. PT educated pt on swelling management including compression socks and leg elevation above heart, recommended follow up with PCP to address. PT also strongly encouraged pt to follow up with PCP regarding increased bilateral swelling, changes in skin color/circulation. Pt verbalizes agreement PT-OP-T Assessment and Plan Start: 12/05/23 13:46 Freq: Status: Active Protocol: Document 12/05/23 13:47 NM (Rec: 12/05/23 17:55 NM [id number]) Physical Therapy Assessment Rehab Potential Rehabilitation Potential Good Evaluation Complexity Number of Personal Factors/Comorbidities 1-2 Number of Body Systems Impaired 1-2 Clinical Presentation at Evaluation Stable Impairments Impairments Activity Tolerance,Balance, Coordination,Edema,Functional Activities,Functional Mobility ,Gait,Integument,Pain,Posture, ROM,Sensation,Soft Tissue Mobility,Strength,Transfers Goals Five Impairment LEFS/FAAM Impairment LEFS 55/80, FAAM 57/84 Care Home Goal (LTG) Pt will increase LEFS score by at least 9 points (MCID) and FAAM by at least 8 points ( MCID) in order to demonstrate improved activity tolerance LTG Duration 8 weeks Four Impairment ambulation Impairment reports unable to ambulate on daily 30 min walks Short Term Goal (STG) Pt will report that he is able to ambulate at least 3x/wk for 15 minutes with R ankle pain <4/10 in order to demonstrate increased tolerance for activity STG Duration 4 weeks Care Home Goal (LTG) Pt will report that he is able to ambulate at least 3x/wk for 30 minutes with R ankle pain <4/10 in order to demonstrate increased tolerance for activity LTG Duration 8 weeks Three Impairment strength Impairment ankle DF/inversion/eversion MMT 4-/5 Short Term Goal (STG) Pt will increase R ankle MMT globally to at least 4/5 in order to demonstrate improved ankle strength and stability during ADLs, gait on even and uneven surfaces STG Duration 4 weeks Care Home Goal (LTG) Pt will increase R ankle MMT globally to at least 4+/5 in order to demonstrate improved ankle strength and stability during ADLs, gait on even and uneven surfaces LTG Duration 8 weeks Two Impairment strength Impairment 10 bilateral heel raises Short Term Goal (STG) Pt will be able to perform at least 20 bilateral heel raises without pain or compensation in order to demonstrate increased B ankle strength required for ambulation and stairs STG Duration 4 weeks [employer] Supervisor Goal (LTG) Pt will be able to perform at least 10 eccentric single leg heel raises on ea leg without pain or compensation in order to demonstrate increased B ankle strength required for ambulation and stairs LTG Duration 8 weeks One Impairment AROM Impairment R DF AROM 8 deg Short Term Goal (STG) Pt will increase R ankle dorsiflexion to at least 10 deg for improved ankle mobility during gait and ADLs STG Duration 4 weeks Care Home Goal (LTG) Pt will increase R ankle dorsiflexion to at least 12 deg for improved ankle mobility during gait and ADLs LTG Duration 8 weeks Assessment Summary Assessment Pt is an 88 y.o. male presenting with R ankle pain beginning without known JONNY several months ago. Pt has hx of chronic ankle injuries. Pt demos decreased R ankle AROM globally, particularly in dorsiflexion, inversion, and eversion. Decreased 1st ray mobility, great toe extension. No pain with AROM during evaluation, although pt reports intermittent pain at home with activity. Right ankle strength is decreased compared to L ankle strength, but no pain with occurs resisted motions. No ankle instability or pain provoked with ligament testing. Pain only provoked with palpation inferior to lateral malleolus with dorsiflexion. Pt has decreased dorsiflexion with squats and in addition to limitations in balance with narrow RADHA. Negative [place] ankle rules. Pt demos bilateral ankle swelling, worse with dependent position, which also has increased redness. PT educated pt on swelling management including compression socks and leg elevation above heart, recommended follow up with PCP to address. PT also educated pt on exam findings, POC, issued HEP to initiate ankle mobility; pt verbalizes undestanding. Pt requesting 1x /wk over 2x/wk due to financial concerns. Pt would benefit from skilled PT to address R ankle stability, improve mobility, balance and gait abnormalities and activity tolerance in order to decrease pain symptoms and return to PLOF. Physical Therapy Plan Frequency and Duration Frequency of Treatment 1x/Week Duration of treatment (weeks) 8 Plan of Care Start Date 12/05/23 Plan of Care End Date 02/01/24 Therapeutic Interventions Therapeutic Interventions Balance Training,Coordination Training,Gait Training,Home Exercise Program,Joint Mobilizations,Manual Therapy, Neuromuscular Re-education, Orthotic/Prosthetic Management ,Patient/Caregiver Education, Self-Care/Home Management, Sensory Integration,Soft Tissue Mobilization,Taping, Therapeutic Activities, Therapeutic Exercises Modalities Cold Pack/Ice Massage,Hot Packs Next Visit Focus/Plan Next Note Type Treatment Note Next Visit Plan Ankle mobility, strengthening. DF mobilization, squat retraining, hip abduction/ glute strengthening
--- NOTE | 2023-12-07 15:52 | PT.OTN ---
Current Diagnoses Pain in right ankle and joints of right foot (12/07/23) Peroneal tendinitis, right leg (12/07/23) Pain in right foot (12/07/23) Other lack of coordination (12/07/23) Weakness (12/07/23) Physical Therapy Treatment Note PT-OP-A Visit Information Start: 12/05/23 13:46 Freq: Status: Active Protocol: Document 12/07/23 13:53 NM (Rec: 12/07/23 14:32 NM [id number]) Out-Patient Physical Therapy Visit Information Visit Information Visit Type Treatment Note Visit Start Time 13:48 Visit Stop Time 14:30 Visit Number 2 Evaluation Information Evaluation Date 12/05/23 PT-OP-B Current Condition Start: 12/05/23 13:46 Freq: Status: Active Protocol: Document 12/05/23 13:47 NM (Rec: 12/05/23 17:55 NM [id number]) Current Condition History of Current Condition Onset Date 6 months ago Current Complaints pain, weakness, difficulty walking History of Current Condition Pt presents with R foot/ankle pain pain. No known JONNY, but reports feeling it on his normal walk. Pt states pain is present primarily along his R lateral ankle, wrapping to front when present. He also reports pain near heel, along arch, laterally. Had a previous episode several months ago that was very painful but relieved with medication. Pt attributes pain partially to shoe choice. He does not know if previous ankle sprain, but has a binder of exercises for ankle sprain rehab. Currently: no regular walking (<30 min/day), reports can do shopping/ADLs without difficulty. Ankle pain is worse with going down stairs, hills. He also reports worsening balance, decreased proprioception. Reports more his R swollen ankle over the last month, thinks bad circulation because it's bilateral. Numbness in foot only with driving, no other reported instances. Pt is currently moving; he is active and does light weight lifting in supine/sitting daily. Previously, pt was using a lateral wedge in his shoe issued by Dr. Solo but has not been wearing it because it doesn't help Prior Treatments and Tests Pt reports no previous PT or imaging related to this episode of ankle/foot pain Current Functional Impairments (Reported) Functional Limitations- Mobility/Gait Unable to ambulate for 30 minutes due to pain. No difficulty with shopping or other ADLs Functional Limitations- Recreation/ Limited ability to perform Hobbies yard work PT-OP-C Subjective Start: 12/05/23 13:46 Freq: Status: Active Protocol: Document 12/07/23 13:53 NM (Rec: 12/07/23 14:32 NM [id number]) OP-PT Subjective Patient Comments Patient Comments Pt reports 0/10 R ankle/foot pain. He presents with his binder about his previous ankle exercises. Pt states he remembers how he thinks he initially hurt his foot when trying to lift a table using his R ankle. He thinks his heel hurts because he puts his foot on the bar stool leg, which is a square. He is using the lateral heel wedge. PT-OP-D Balance Start: 12/05/23 13:46 Freq: Status: Active Protocol: Document 12/05/23 13:47 NM (Rec: 12/05/23 17:55 NM [id number]) Balance Tests Single Limb Standing Single Limb- Right 8 seconds; no pain, decreased stability Single Limb- Left 10 seconds; decreased stability Tandem Tandem Standing 10 seconds, increased sway PT-OP-E Functional Tests Start: 12/05/23 13:46 Freq: Status: Active Protocol: Document 12/05/23 13:47 NM (Rec: 12/05/23 17:55 NM [id number]) Functional Tests Five Times Sit to Stand Test Score 8 seconds Comments no pain, decreased dorsiflexion bilaterally Squat Test Score 10 Comments decreased dorsiflexion, increased tibial fwd, pronation, fwd trunk PT-OP-F Manual Assessment Start: 12/05/23 13:46 Freq: Status: Active Protocol: Document 12/05/23 13:47 NM (Rec: 12/05/23 17:55 NM [id number]) Manual Assessments Soft Tissue Assessment Soft Tissue Mobility Assessment No restrictions of R Achilles, but atrophy of all ankle muscles. Joint Mobility Assessment Joint Mobility Assessment No ligamentous instability, subluxation. Decreased R toe extension mobility. Decreased ankle mobility bilaterally, R> L. Adduction of B 5th toes PT-OP-G Mobility & Gait Start: 12/05/23 13:46 Freq: Status: Active Protocol: Document 12/05/23 13:47 NM (Rec: 12/05/23 17:55 NM [id number]) OP Gait Assessment Gait Gait Assistance Required: Independent Distance (Feet) 200 Assistive Devices Assistive Device None Gait Deviations General Gait Pattern Antalgic,Decreased Stride Length,Decreased Feet Clearance Factors Limiting Gait Function Factors Limiting Gait Function Decreased Activity Tolerance, Decreased Strength,Limited Range of Motion,Pain,Poor Balance Comments Gait Comments Increased toe out bilaterally, pronation. Limited dorsiflexion PT-OP-H Neuro Start: 12/05/23 13:46 Freq: Status: Active Protocol: Document 12/05/23 13:47 NM (Rec: 12/05/23 17:55 NM [id number]) Sensation Evaluation Gross Sensation Gross Sensation WNL Comments Summary Comments BLE intact to light touch sensation equally PT-OP-J Posture/Palpation/Skin Start: 12/05/23 13:46 Freq: Status: Active Protocol: Document 12/05/23 13:47 NM (Rec: 12/05/23 17:55 NM [id number]) Posture Evaluation Position Standing Head/C-Spine Posture Forward Head T-Spine Posture Increased Kyphosis L-Spine Posture Increased Lordosis Pelvis Posture Anteriorly Tilted Hip Posture (L) Externally Rotated,(R) Externally Rotated Knee Posture (L) Genu Valgus,(R) Genu Valgus Patellar Posture (L) Superior,(R) Superior Ankle/Foot Posture (L) Pronated,(R) Pronated Foot Arch (L) Low Arch,(R) Low Arch Toe Posture (L) Flexed Toes,(R) Flexed Toes Comments Posture Comments Bilateral tailor's bunion Palpation Assessment Location R ankle/foot Palpation Location lateral ankle, B malleoli, rays 1-5, tarsals, calcaneus Palpation Findings Soft Tissue Tightness, Tenderness Palpation Details Tenderness inferior to lateral malleoli. No tenderness of B malleoli. No tenderness along metatarsals, calcaneus, Achilles, proximal fibula, or tibia. No tenderness of plantar fascia Skin Assessment Circumference Measurement Circumference of malleoli Location R ankle 27.5 cm, L ankle 27 cm Figure 8 Location R ankle 54 cm, L ankle 52 cm Other Assessments Skin Assessment Comments Increased edema along medial malleoli bilaterally, mild pitting. Increased rubor in BLE with dependency PT-OP-K Range of Motion Start: 12/05/23 13:46 Freq: Status: Active Protocol: Document 12/05/23 13:47 NM (Rec: 12/05/23 17:55 NM [id number]) Hip Goniometric Range of Motion Hip Right Flexion w/Knee Flexed 105 Left Flexion w/Knee Flexed 110 Knee Goniometric Range of Motion Knee Right Flexion Active (degrees) 125 Extension Active (degrees) 0 Left Flexion Active (degrees) 125 Extension Active (degrees) 0 Ankle and Foot Goniometric Range of Motion Ankle and Foot Right Dorsiflexion with Knee Flexed 8 Dorsiflexion with Knee Extended 5 Plantarflexion 30 Inversion 10 Eversion 5 Comments No pain with AROM but limited globally Left Dorsiflexion with Knee Flexed 10 Dorsiflexion with Knee Extended 15 Plantarflexion 30 Inversion 10 PT-OP-L Special Tests Start: 12/05/23 13:46 Freq: Status: Active Protocol: Document 12/05/23 13:47 NM (Rec: 12/05/23 17:55 NM [id number]) Special Tests Foot/Ankle Special Tests Windlass Test Results - Carey Test Results - Forced Dorsiflexion Impingement Test Results - Comments No impingement but reports increased pain under lateral malleolus with pressure along subtalar joint Talar Tilt Test Results - Anterior drawer Test Results - PT-OP-M Strength Start: 12/05/23 13:46 Freq: Status: Active Protocol: Document 12/05/23 13:47 NM (Rec: 12/05/23 17:55 NM [id number]) Hip Strength Hip Manual Muscle Testing Right Flexion (L2) 4 Good Extension (S1) 4 Good Abduction 4 Good Adduction 4 Good External Rotation 4 Good Internal Rotation 4 Good Left Flexion (L2) 4 Good Extension (S1) 4 Good Abduction 4 Good Adduction 4 Good External Rotation 4 Good Internal Rotation 4 Good Knee Strength Knee Manual Muscle Testing Right Flexion (S2) 4 Good Extension (L3) 4 Good Left Flexion (S2) 4 Good Extension (L3) 4 Good Ankle/Foot Strength Ankle and Foot Manual Muscle Testing Right Dorsiflexion (L4) 4- Good- Plantarflexion (S1) 4- Good- Inversion 4- Good- Eversion (S1) 4- Good- Comments 10 bilateral heel raises, unable to perform single heel raise Left Dorsiflexion (L4) 4 Good Plantarflexion (S1) 4 Good Inversion 4 Good Eversion (S1) 4 Good Comments 10 bilateral heel raises, unable to perform single heel raise Toe Strength Toe Manual Muscle Testing Right Great Toe Flexion 4 Good Extension 4 Good Left Great Toe Flexion 4 Good Extension 4 Good PT-OP-Q Treatments Start: 12/05/23 13:46 Freq: Status: Active Protocol: Document 12/07/23 13:53 NM (Rec: 12/07/23 14:32 NM [id number]) Therapeutic Exercises Sitting Exercises hip abduction Sitting Exercise Name for hip strengthening Side bilateral Resistance lvl 3 nul[place] tb around thighs Reps/Minutes 3x10 with 3 hold Comments reports hard Foot intrinsics Sitting Exercise Name 1. short arch raise, 2. toe lifts, 3. toe abd, 4. towel scrunches Side right Equipment Used hand assist with toe ext Reps/Minutes 1x10 ea Comments difficult Ankle eversion Sitting Exercise Name initiated in PT; added to HEP Side right Resistance lvl 2 teal band Reps/Minutes 2x12 with brief hold Comments cued for execution, control, no hip rotation Ankle inversion Sitting Exercise Name initiated in PT; added to HEP Side right Resistance lvl 2 teal band Reps/Minutes 2x12 with brief hold Comments cued for execution, control, no hip rotation Ankle plantarflexion Sitting Exercise Name initiated in PT; added to HEP Side right Resistance lvl 2 teal band Reps/Minutes 2x12 with brief hold Comments cued for form, control Ankle dorsiflexion Sitting Exercise Name initiated in PT; added to HEP Side right Resistance lvl 2 teal tb Reps/Minutes 2x10 with brief hold Comments cued for form, control Ankle ABCs Sitting Exercise Name short sitting, review HEP Side bilateral Resistance AROM Reps/Minutes 1 rep ea Comments no pain with activity; cued no hip movement Standing Exercises toe extension stretch Standing Exercise Name staggered stand Side right Equipment Used wall for UE support, staggered stance Reps/Minutes 1x10 with 5 hold Comments cued for form; monitored for pain, reports none calf stretch Standing Exercise Name 1. gastrocnemius, 2. soleus Side right Equipment Used staggered stance, wall for UE support Reps/Minutes 2x30 ea Comments cued heel on ground during stretch; reports good stretch, no pain Self-Care/Home Management Treatment Education Patient Education Home Exercise Program Other Education HEP: ankle inversion/eversion/ plantarflexion/dorsiflexion, hip abduction, toe extension stretch. Educated on performing HEP only 1x/day PT-OP-T Assessment and Plan Start: 12/05/23 13:46 Freq: Status: Active Protocol: Document 12/07/23 13:53 NM (Rec: 12/07/23 14:32 NM [id number]) Physical Therapy Assessment Goals Five Impairment LEFS/FAAM Impairment LEFS 55/80, FAAM 57/84 Alf Goal (LTG) Pt will increase LEFS score by at least 9 points (MCID) and FAAM by at least 8 points ( MCID) in order to demonstrate improved activity tolerance LTG Duration 8 weeks Four Impairment ambulation Impairment reports unable to ambulate on daily 30 min walks Short Term Goal (STG) Pt will report that he is able to ambulate at least 3x/wk for 15 minutes with R ankle pain <4/10 in order to demonstrate increased tolerance for activity STG Duration 4 weeks Alf Goal (LTG) Pt will report that he is able to ambulate at least 3x/wk for 30 minutes with R ankle pain <4/10 in order to demonstrate increased tolerance for activity LTG Duration 8 weeks Three Impairment strength Impairment ankle DF/inversion/eversion MMT 4-/5 Short Term Goal (STG) Pt will increase R ankle MMT globally to at least 4/5 in order to demonstrate improved ankle strength and stability during ADLs, gait on even and uneven surfaces STG Duration 4 weeks Slab Lifting Engineer Goal (LTG) Pt will increase R ankle MMT globally to at least 4+/5 in order to demonstrate improved ankle strength and stability during ADLs, gait on even and uneven surfaces LTG Duration 8 weeks Two Impairment strength Impairment 10 bilateral heel raises Short Term Goal (STG) Pt will be able to perform at least 20 bilateral heel raises without pain or compensation in order to demonstrate increased B ankle strength required for ambulation and stairs STG Duration 4 weeks Slab Lifting Engineer Goal (LTG) Pt will be able to perform at least 10 eccentric single leg heel raises on ea leg without pain or compensation in order to demonstrate increased B ankle strength required for ambulation and stairs LTG Duration 8 weeks One Impairment AROM Impairment R DF AROM 8 deg Short Term Goal (STG) Pt will increase R ankle dorsiflexion to at least 10 deg for improved ankle mobility during gait and ADLs STG Duration 4 weeks Alf Goal (LTG) Pt will increase R ankle dorsiflexion to at least 12 deg for improved ankle mobility during gait and ADLs LTG Duration 8 weeks Assessment Summary Assessment Pt tolerated session well without any reports of increased pain or discomfort in his R ankle. Initiated ankle strengthening with resistance band and foot intrinsics. Pt cued to limit hip rotation compensations with ankle resistance band; reports medium difficulty. Pt challenged with foot intrinsic exercises. Cued for execution , keeping heel on ground to limit compensations. Pt able to perform short arch raise fair with repetitions. Continued with calf stretch in staggered stance, added great toe extension stretch in order to improve great toe mobility on R foot. PT educated pt on HEP purpose and performance only 1x/day. Pt verbalizes understanding. Pt would benefit from skilled PT for R ankle mobility and strengthening, in addition to progressive BLE strengthening for improved gait mechanics, decrease pain symptoms, and return to PLOF. Physical Therapy Plan Frequency and Duration Frequency of Treatment 1x/Week Duration of treatment (weeks) 8 Plan of Care Start Date 12/05/23 Plan of Care End Date 02/01/24 Therapeutic Interventions Therapeutic Interventions Balance Training,Coordination Training,Gait Training,Home Exercise Program,Joint Mobilizations,Manual Therapy, Neuromuscular Re-education, Orthotic/Prosthetic Management ,Patient/Caregiver Education, Self-Care/Home Management, Sensory Integration,Soft Tissue Mobilization,Taping, Therapeutic Activities, Therapeutic Exercises Modalities Cold Pack/Ice Massage,Hot Packs Next Visit Focus/Plan Next Note Type Treatment Note Next Visit Plan Next session: progress R ankle [address] theraband, continue with ankle intrinsics as necesssary. Trial DF mobilization in standing, heel raise B. Progress hip abd/ glute strengthening in standing (side steps, squats) Manual treatment to plantarfascia, ankle as needed
--- NOTE | 2023-12-14 13:46 | PT.OTN ---
Current Diagnoses Pain in right ankle and joints of right foot (12/14/23) Peroneal tendinitis, right leg (12/14/23) Pain in right foot (12/14/23) Other lack of coordination (12/14/23) Weakness (12/14/23) Physical Therapy Treatment Note PT-OP-A Visit Information Start: 12/05/23 13:46 Freq: Status: Active Protocol: Document 12/14/23 11:27 NBM (Rec: 12/14/23 12:30 NBM [id number]) Out-Patient Physical Therapy Visit Information Visit Information Visit Type Treatment Note Visit Start Time 11:16 Visit Stop Time 12:08 Visit Number 3 Number of [facility] FORMER Visits 1 PT-OP-B Current Condition Start: 12/05/23 13:46 Freq: Status: Active Protocol: Document 12/05/23 13:47 NM (Rec: 12/05/23 17:55 NM [id number]) Current Condition History of Current Condition Onset Date 6 months ago Current Complaints pain, weakness, difficulty walking History of Current Condition Pt presents with R foot/ankle pain pain. No known JONNY, but reports feeling it on his normal walk. Pt states pain is present primarily along his R lateral ankle, wrapping to front when present. He also reports pain near heel, along arch, laterally. Had a previous episode several months ago that was very painful but relieved with medication. Pt attributes pain partially to shoe choice. He does not know if previous ankle sprain, but has a binder of exercises for ankle sprain rehab. Currently: no regular walking (<30 min/day), reports can do shopping/ADLs without difficulty. Ankle pain is worse with going down stairs, hills. He also reports worsening balance, decreased proprioception. Reports more his R swollen ankle over the last month, thinks bad circulation because it's bilateral. Numbness in foot only with driving, no other reported instances. Pt is currently moving; he is active and does light weight lifting in supine/sitting daily. Previously, pt was using a lateral wedge in his shoe issued by Dr. Solo but has not been wearing it because it doesn't help Prior Treatments and Tests Pt reports no previous PT or imaging related to this episode of ankle/foot pain Current Functional Impairments (Reported) Functional Limitations- Mobility/Gait Unable to ambulate for 30 minutes due to pain. No difficulty with shopping or other ADLs Functional Limitations- Recreation/ Limited ability to perform Hobbies yard work PT-OP-C Subjective Start: 12/05/23 13:46 Freq: Status: Active Protocol: Document 12/14/23 11:27 NBM (Rec: 12/14/23 12:30 NBM [id number]) OP-PT Subjective Patient Comments Patient Comments Pt reports ex's are going well . He is unsure of one handwritten note on his HEP. He has not spoken with PCP yet but thinks ankle swelling is improving with PT exercises. PT-OP-D Balance Start: 12/05/23 13:46 Freq: Status: Active Protocol: Document 12/05/23 13:47 NM (Rec: 12/05/23 17:55 NM [id number]) Balance Tests Single Limb Standing Single Limb- Right 8 seconds; no pain, decreased stability Single Limb- Left 10 seconds; decreased stability Tandem Tandem Standing 10 seconds, increased sway PT-OP-E Functional Tests Start: 12/05/23 13:46 Freq: Status: Active Protocol: Document 12/05/23 13:47 NM (Rec: 12/05/23 17:55 NM [id number]) Functional Tests Five Times Sit to Stand Test Score 8 seconds Comments no pain, decreased dorsiflexion bilaterally Squat Test Score 10 Comments decreased dorsiflexion, increased tibial fwd, pronation, fwd trunk PT-OP-F Manual Assessment Start: 12/05/23 13:46 Freq: Status: Active Protocol: Document 12/05/23 13:47 NM (Rec: 12/05/23 17:55 NM [id number]) Manual Assessments Soft Tissue Assessment Soft Tissue Mobility Assessment No restrictions of R Achilles, but atrophy of all ankle muscles. Joint Mobility Assessment Joint Mobility Assessment No ligamentous instability, subluxation. Decreased R toe extension mobility. Decreased ankle mobility bilaterally, R> L. Adduction of B 5th toes PT-OP-G Mobility & Gait Start: 12/05/23 13:46 Freq: Status: Active Protocol: Document 12/05/23 13:47 NM (Rec: 12/05/23 17:55 NM [id number]) OP Gait Assessment Gait Gait Assistance Required: Independent Distance (Feet) 200 Assistive Devices Assistive Device None Gait Deviations General Gait Pattern Antalgic,Decreased Stride Length,Decreased Feet Clearance Factors Limiting Gait Function Factors Limiting Gait Function Decreased Activity Tolerance, Decreased Strength,Limited Range of Motion,Pain,Poor Balance Comments Gait Comments Increased toe out bilaterally, pronation. Limited dorsiflexion PT-OP-H Neuro Start: 12/05/23 13:46 Freq: Status: Active Protocol: Document 12/05/23 13:47 NM (Rec: 12/05/23 17:55 NM [id number]) Sensation Evaluation Gross Sensation Gross Sensation WNL Comments Summary Comments BLE intact to light touch sensation equally PT-OP-J Posture/Palpation/Skin Start: 12/05/23 13:46 Freq: Status: Active Protocol: Document 12/05/23 13:47 NM (Rec: 12/05/23 17:55 NM [id number]) Posture Evaluation Position Standing Head/C-Spine Posture Forward Head T-Spine Posture Increased Kyphosis L-Spine Posture Increased Lordosis Pelvis Posture Anteriorly Tilted Hip Posture (L) Externally Rotated,(R) Externally Rotated Knee Posture (L) Genu Valgus,(R) Genu Valgus Patellar Posture (L) Superior,(R) Superior Ankle/Foot Posture (L) Pronated,(R) Pronated Foot Arch (L) Low Arch,(R) Low Arch Toe Posture (L) Flexed Toes,(R) Flexed Toes Comments Posture Comments Bilateral tailor's bunion Palpation Assessment Location R ankle/foot Palpation Location lateral ankle, B malleoli, rays 1-5, tarsals, calcaneus Palpation Findings Soft Tissue Tightness, Tenderness Palpation Details Tenderness inferior to lateral malleoli. No tenderness of B malleoli. No tenderness along metatarsals, calcaneus, Achilles, proximal fibula, or tibia. No tenderness of plantar fascia Skin Assessment Circumference Measurement Circumference of malleoli Location R ankle 27.5 cm, L ankle 27 cm Figure 8 Location R ankle 54 cm, L ankle 52 cm Other Assessments Skin Assessment Comments Increased edema along medial malleoli bilaterally, mild pitting. Increased rubor in BLE with dependency PT-OP-K Range of Motion Start: 12/05/23 13:46 Freq: Status: Active Protocol: Document 12/05/23 13:47 NM (Rec: 12/05/23 17:55 NM [id number]) Hip Goniometric Range of Motion Hip Right Flexion w/Knee Flexed 105 Left Flexion w/Knee Flexed 110 Knee Goniometric Range of Motion Knee Right Flexion Active (degrees) 125 Extension Active (degrees) 0 Left Flexion Active (degrees) 125 Extension Active (degrees) 0 Ankle and Foot Goniometric Range of Motion Ankle and Foot Right Dorsiflexion with Knee Flexed 8 Dorsiflexion with Knee Extended 5 Plantarflexion 30 Inversion 10 Eversion 5 Comments No pain with AROM but limited globally Left Dorsiflexion with Knee Flexed 10 Dorsiflexion with Knee Extended 15 Plantarflexion 30 Inversion 10 PT-OP-L Special Tests Start: 12/05/23 13:46 Freq: Status: Active Protocol: Document 12/05/23 13:47 NM (Rec: 12/05/23 17:55 NM [id number]) Special Tests Foot/Ankle Special Tests Windlass Test Results - Carey Test Results - Forced Dorsiflexion Impingement Test Results - Comments No impingement but reports increased pain under lateral malleolus with pressure along subtalar joint Talar Tilt Test Results - Anterior drawer Test Results - PT-OP-M Strength Start: 12/05/23 13:46 Freq: Status: Active Protocol: Document 12/05/23 13:47 NM (Rec: 12/05/23 17:55 NM [id number]) Hip Strength Hip Manual Muscle Testing Right Flexion (L2) 4 Good Extension (S1) 4 Good Abduction 4 Good Adduction 4 Good External Rotation 4 Good Internal Rotation 4 Good Left Flexion (L2) 4 Good Extension (S1) 4 Good Abduction 4 Good Adduction 4 Good External Rotation 4 Good Internal Rotation 4 Good Knee Strength Knee Manual Muscle Testing Right Flexion (S2) 4 Good Extension (L3) 4 Good Left Flexion (S2) 4 Good Extension (L3) 4 Good Ankle/Foot Strength Ankle and Foot Manual Muscle Testing Right Dorsiflexion (L4) 4- Good- Plantarflexion (S1) 4- Good- Inversion 4- Good- Eversion (S1) 4- Good- Comments 10 bilateral heel raises, unable to perform single heel raise Left Dorsiflexion (L4) 4 Good Plantarflexion (S1) 4 Good Inversion 4 Good Eversion (S1) 4 Good Comments 10 bilateral heel raises, unable to perform single heel raise Toe Strength Toe Manual Muscle Testing Right Great Toe Flexion 4 Good Extension 4 Good Left Great Toe Flexion 4 Good Extension 4 Good PT-OP-Q Treatments Start: 12/05/23 13:46 Freq: Status: Active Protocol: Document 12/14/23 11:27 [facility] (Rec: 12/14/23 12:30 [facility] [id number]) Therapeutic Exercises Sitting Exercises hip abduction Sitting Exercise Name for hip strengthening Side bilateral Resistance lvl 2 teal tb around thighs Reps/Minutes 2x10 w/ cues for breathwork Comments good challenge Ankle eversion Sitting Exercise Name initiated in PT; added to HEP Side right Resistance lvl 2 teal band Reps/Minutes x10 with brief hold Comments cued for execution, control, no hip rotation Ankle inversion Sitting Exercise Name initiated in PT; added to HEP Side right Resistance lvl 2 teal band Reps/Minutes x10 with brief hold Comments cued for execution, control, no hip rotation Ankle dorsiflexion Sitting Exercise Name initiated in PT; added to HEP Side right Resistance lvl 2 teal tb Reps/Minutes x10 with brief hold Comments cued for form, control Ankle ABCs Sitting Exercise Name short sitting, review HEP Side bilateral Resistance AROM Reps/Minutes 1 rep ea Comments no pain with activity; cued air not floor. Standing Exercises hip abduction Standing Exercise Name 1. AROM 2. Sidestepping. Side bilateral Resistance Lvl 2 Tb at ankles Equipment Used handrail prn Reps/Minutes x10 ea; x10 ft ea Comments Cues for upright posture, neutral foot position, eccentric control toe extension stretch Standing Exercise Name staggered stand Side right Equipment Used wall for UE support, staggered stance Reps/Minutes 1x10 with 5 hold Comments cued for form; monitored for pain, reports none calf stretch Standing Exercise Name 1. gastrocnemius, 2. soleus Side right Equipment Used staggered stance, wall for UE support Reps/Minutes 2x30 ea Comments cued heel on ground during stretch; reports good stretch, no pain Self-Care/Home Management Treatment Education Patient Education Home Exercise Program Other Education -HEP review. Added to HEP: Big toe stretch - HO given. -Edu to pt of peroneal m anatomy and mechanism of action, and definition of concentric/eccentric/isometric muscle actions to improve pt form w/ resisted ankle ex's and understanding of how HEP is related to pt's goals of walking and decreased pain w/ stairs and declines. -Pt to initiate gentle walking program 10' total at slower pace than usual with mindfulness for eccentric control w/ LEs. -note on pt's HEP clarified for pt: PCP - Primary Care Physician written out w/ instruction for pt to follow up w/ PCP as previously discussed w/ PT. PT-OP-T Assessment and Plan Start: 12/05/23 13:46 Freq: Status: Active Protocol: Document 12/14/23 11:27 NBM (Rec: 12/14/23 12:30 NB [id number]) Physical Therapy Assessment Impairments Impairments Activity Tolerance,Balance, Coordination,Edema,Functional Activities,Functional Mobility ,Gait,Integument,Pain,Posture, ROM,Sensation,Soft Tissue Mobility,Strength,Transfers Goals Five Impairment LEFS/FAAM Impairment LEFS 55/80, FAAM 57/84 Patrol Judge Goal (LTG) Pt will increase LEFS score by at least 9 points (MCID) and FAAM by at least 8 points ( MCID) in order to demonstrate improved activity tolerance LTG Duration 8 weeks Four Impairment ambulation Impairment reports unable to ambulate on daily 30 min walks Short Term Goal (STG) Pt will report that he is able to ambulate at least 3x/wk for 15 minutes with R ankle pain <4/10 in order to demonstrate increased tolerance for activity 12/14/23: Pt to initiate gentle walking program 10' total at slower pace than usual with mindfulness for eccentric control w/ LEs. STG Duration 4 weeks Patrol Judge Goal (LTG) Pt will report that he is able to ambulate at least 3x/wk for 30 minutes with R ankle pain <4/10 in order to demonstrate increased tolerance for activity LTG Duration 8 weeks Three Impairment strength Impairment ankle DF/inversion/eversion MMT 4-/5 Short Term Goal (STG) Pt will increase R ankle MMT globally to at least 4/5 in order to demonstrate improved ankle strength and stability during ADLs, gait on even and uneven surfaces STG Duration 4 weeks Usp Goal (LTG) Pt will increase R ankle MMT globally to at least 4+/5 in order to demonstrate improved ankle strength and stability during ADLs, gait on even and uneven surfaces LTG Duration 8 weeks Two Impairment strength Impairment 10 bilateral heel raises Short Term Goal (STG) Pt will be able to perform at least 20 bilateral heel raises without pain or compensation in order to demonstrate increased B ankle strength required for ambulation and stairs 12/14/23: Pt requires cues w/ fatigue for neutral foot position and decreased UE support. STG Duration 4 weeks Usp Goal (LTG) Pt will be able to perform at least 10 eccentric single leg heel raises on ea leg without pain or compensation in order to demonstrate increased B ankle strength required for ambulation and stairs LTG Duration 8 weeks One Impairment AROM Impairment R DF AROM 8 deg Short Term Goal (STG) Pt will increase R ankle dorsiflexion to at least 10 deg for improved ankle mobility during gait and ADLs STG Duration 4 weeks Patrol Judge Goal (LTG) Pt will increase R ankle dorsiflexion to at least 12 deg for improved ankle mobility during gait and ADLs LTG Duration 8 weeks Assessment Summary Assessment Treatment focus on HEP review, hip strengthening and education. Don requires cues to improve performance of ankle ex's and seated clamshells. He tolerates introduction of standing resisted hip abduction and sidestepping with cues for decreasing UE support. Pt's improved understanding of peroneal m. mechanism of action carries over to improved resisted ankle ex performance. Pt was holding seated clamshells 10s w/ feet apart and is cued for AROM w/ breathwork and feet together for increasing hip strength. Pt encouraged to initiate walking program at slower gentler pace w/ focus on LE eccentric control. Edu to pt re: importance of both stretching and strengthening for rehab progression. Added to HEP: big toe stretch - HO given. Physical Therapy Plan Frequency and Duration Frequency of Treatment 1x/Week Duration of treatment (weeks) 8 Plan of Care Start Date 12/05/23 Plan of Care End Date 02/01/24 Therapeutic Interventions Therapeutic Interventions Balance Training,Coordination Training,Gait Training,Home Exercise Program,Joint Mobilizations,Manual Therapy, Neuromuscular Re-education, Orthotic/Prosthetic Management ,Patient/Caregiver Education, Self-Care/Home Management, Sensory Integration,Soft Tissue Mobilization,Taping, Therapeutic Activities, Therapeutic Exercises Modalities Cold Pack/Ice Massage,Hot Packs Next Visit Focus/Plan Next Note Type Treatment Note Next Visit Plan Next session: progress R ankle 4 way theraband, continue with ankle intrinsics as necesssary. Trial DF mobilization in standing, heel raise B. Progress hip abd/ glute strengthening in standing (side steps, squats) Manual treatment to plantarfascia, ankle as needed
--- NOTE | 2023-12-20 16:32 | PT.OTN ---
Current Diagnoses Pain in right ankle and joints of right foot (12/20/23) Peroneal tendinitis, right leg (12/20/23) Pain in right foot (12/20/23) Other lack of coordination (12/20/23) Weakness (12/20/23) Physical Therapy Treatment Note PT-OP-A Visit Information Start: 12/05/23 13:46 Freq: Status: Active Protocol: Document 12/20/23 13:00 NM (Rec: 12/20/23 13:48 NM [id number]) Out-Patient Physical Therapy Visit Information Visit Information Visit Type Treatment Note Visit Start Time 13:00 Visit Stop Time 13:45 Visit Number 4 Evaluation Information Evaluation Date 12/05/23 PT-OP-B Current Condition Start: 12/05/23 13:46 Freq: Status: Active Protocol: Document 12/05/23 13:47 NM (Rec: 12/05/23 17:55 NM [id number]) Current Condition History of Current Condition Onset Date 6 months ago Current Complaints pain, weakness, difficulty walking History of Current Condition Pt presents with R foot/ankle pain pain. No known JONNY, but reports feeling it on his normal walk. Pt states pain is present primarily along his R lateral ankle, wrapping to front when present. He also reports pain near heel, along arch, laterally. Had a previous episode several months ago that was very painful but relieved with medication. Pt attributes pain partially to shoe choice. He does not know if previous ankle sprain, but has a binder of exercises for ankle sprain rehab. Currently: no regular walking (<30 min/day), reports can do shopping/ADLs without difficulty. Ankle pain is worse with going down stairs, hills. He also reports worsening balance, decreased proprioception. Reports more his R swollen ankle over the last month, thinks bad circulation because it's bilateral. Numbness in foot only with driving, no other reported instances. Pt is currently moving; he is active and does light weight lifting in supine/sitting daily. Previously, pt was using a lateral wedge in his shoe issued by Dr. Solo but has not been wearing it because it doesn't help Prior Treatments and Tests Pt reports no previous PT or imaging related to this episode of ankle/foot pain Current Functional Impairments (Reported) Functional Limitations- Mobility/Gait Unable to ambulate for 30 minutes due to pain. No difficulty with shopping or other ADLs Functional Limitations- Recreation/ Limited ability to perform Hobbies yard work PT-OP-C Subjective Start: 12/05/23 13:46 Freq: Status: Active Protocol: Document 12/20/23 13:00 NM (Rec: 12/20/23 13:48 NM [id number]) OP-PT Subjective Patient Comments Patient Comments Pt reports that his foot/ankle is doing better, reports less pain overall. He has been compliant with HEP, miranda strengthening. Pt reports ant heel pain near arch after being on his feet. Did not attempting walking program but is planning to try today PT-OP-D Balance Start: 12/05/23 13:46 Freq: Status: Active Protocol: Document 12/05/23 13:47 NM (Rec: 12/05/23 17:55 NM [id number]) Balance Tests Single Limb Standing Single Limb- Right 8 seconds; no pain, decreased stability Single Limb- Left 10 seconds; decreased stability Tandem Tandem Standing 10 seconds, increased sway PT-OP-E Functional Tests Start: 12/05/23 13:46 Freq: Status: Active Protocol: Document 12/05/23 13:47 NM (Rec: 12/05/23 17:55 NM [id number]) Functional Tests Five Times Sit to Stand Test Score 8 seconds Comments no pain, decreased dorsiflexion bilaterally Squat Test Score 10 Comments decreased dorsiflexion, increased tibial fwd, pronation, fwd trunk PT-OP-F Manual Assessment Start: 12/05/23 13:46 Freq: Status: Active Protocol: Document 12/05/23 13:47 NM (Rec: 12/05/23 17:55 NM [id number]) Manual Assessments Soft Tissue Assessment Soft Tissue Mobility Assessment No restrictions of R Achilles, but atrophy of all ankle muscles. Joint Mobility Assessment Joint Mobility Assessment No ligamentous instability, subluxation. Decreased R toe extension mobility. Decreased ankle mobility bilaterally, R> L. Adduction of B 5th toes PT-OP-G Mobility & Gait Start: 12/05/23 13:46 Freq: Status: Active Protocol: Document 12/05/23 13:47 NM (Rec: 12/05/23 17:55 NM [id number]) OP Gait Assessment Gait Gait Assistance Required: Independent Distance (Feet) 200 Assistive Devices Assistive Device None Gait Deviations General Gait Pattern Antalgic,Decreased Stride Length,Decreased Feet Clearance Factors Limiting Gait Function Factors Limiting Gait Function Decreased Activity Tolerance, Decreased Strength,Limited Range of Motion,Pain,Poor Balance Comments Gait Comments Increased toe out bilaterally, pronation. Limited dorsiflexion PT-OP-H Neuro Start: 12/05/23 13:46 Freq: Status: Active Protocol: Document 12/05/23 13:47 NM (Rec: 12/05/23 17:55 NM [id number]) Sensation Evaluation Gross Sensation Gross Sensation WNL Comments Summary Comments BLE intact to light touch sensation equally PT-OP-J Posture/Palpation/Skin Start: 12/05/23 13:46 Freq: Status: Active Protocol: Document 12/05/23 13:47 NM (Rec: 12/05/23 17:55 NM [id number]) Posture Evaluation Position Standing Head/C-Spine Posture Forward Head T-Spine Posture Increased Kyphosis L-Spine Posture Increased Lordosis Pelvis Posture Anteriorly Tilted Hip Posture (L) Externally Rotated,(R) Externally Rotated Knee Posture (L) Genu Valgus,(R) Genu Valgus Patellar Posture (L) Superior,(R) Superior Ankle/Foot Posture (L) Pronated,(R) Pronated Foot Arch (L) Low Arch,(R) Low Arch Toe Posture (L) Flexed Toes,(R) Flexed Toes Comments Posture Comments Bilateral tailor's bunion Palpation Assessment Location R ankle/foot Palpation Location lateral ankle, B malleoli, rays 1-5, tarsals, calcaneus Palpation Findings Soft Tissue Tightness, Tenderness Palpation Details Tenderness inferior to lateral malleoli. No tenderness of B malleoli. No tenderness along metatarsals, calcaneus, Achilles, proximal fibula, or tibia. No tenderness of plantar fascia Skin Assessment Circumference Measurement Circumference of malleoli Location R ankle 27.5 cm, L ankle 27 cm Figure 8 Location R ankle 54 cm, L ankle 52 cm Other Assessments Skin Assessment Comments Increased edema along medial malleoli bilaterally, mild pitting. Increased rubor in BLE with dependency PT-OP-K Range of Motion Start: 12/05/23 13:46 Freq: Status: Active Protocol: Document 12/05/23 13:47 NM (Rec: 12/05/23 17:55 NM [id number]) Hip Goniometric Range of Motion Hip Right Flexion w/Knee Flexed 105 Left Flexion w/Knee Flexed 110 Knee Goniometric Range of Motion Knee Right Flexion Active (degrees) 125 Extension Active (degrees) 0 Left Flexion Active (degrees) 125 Extension Active (degrees) 0 Ankle and Foot Goniometric Range of Motion Ankle and Foot Right Dorsiflexion with Knee Flexed 8 Dorsiflexion with Knee Extended 5 Plantarflexion 30 Inversion 10 Eversion 5 Comments No pain with AROM but limited globally Left Dorsiflexion with Knee Flexed 10 Dorsiflexion with Knee Extended 15 Plantarflexion 30 Inversion 10 PT-OP-L Special Tests Start: 12/05/23 13:46 Freq: Status: Active Protocol: Document 12/05/23 13:47 NM (Rec: 12/05/23 17:55 NM [id number]) Special Tests Foot/Ankle Special Tests Windlass Test Results - Carey Test Results - Forced Dorsiflexion Impingement Test Results - Comments No impingement but reports increased pain under lateral malleolus with pressure along subtalar joint Talar Tilt Test Results - Anterior drawer Test Results - PT-OP-M Strength Start: 12/05/23 13:46 Freq: Status: Active Protocol: Document 12/05/23 13:47 NM (Rec: 12/05/23 17:55 NM [id number]) Hip Strength Hip Manual Muscle Testing Right Flexion (L2) 4 Good Extension (S1) 4 Good Abduction 4 Good Adduction 4 Good External Rotation 4 Good Internal Rotation 4 Good Left Flexion (L2) 4 Good Extension (S1) 4 Good Abduction 4 Good Adduction 4 Good External Rotation 4 Good Internal Rotation 4 Good Knee Strength Knee Manual Muscle Testing Right Flexion (S2) 4 Good Extension (L3) 4 Good Left Flexion (S2) 4 Good Extension (L3) 4 Good Ankle/Foot Strength Ankle and Foot Manual Muscle Testing Right Dorsiflexion (L4) 4- Good- Plantarflexion (S1) 4- Good- Inversion 4- Good- Eversion (S1) 4- Good- Comments 10 bilateral heel raises, unable to perform single heel raise Left Dorsiflexion (L4) 4 Good Plantarflexion (S1) 4 Good Inversion 4 Good Eversion (S1) 4 Good Comments 10 bilateral heel raises, unable to perform single heel raise Toe Strength Toe Manual Muscle Testing Right Great Toe Flexion 4 Good Extension 4 Good Left Great Toe Flexion 4 Good Extension 4 Good PT-OP-Q Treatments Start: 12/05/23 13:46 Freq: Status: Active Protocol: Document 12/20/23 13:00 NM (Rec: 12/20/23 13:48 NM [id number]) Therapeutic Exercises Sitting Exercises Ankle eversion Side right Resistance lvl 2 teal band Reps/Minutes 1x10 with brief hold Comments cued for no hip rotation; improved with reps Ankle inversion Side right Resistance lvl 3 [place] [employer] [place] band Reps/Minutes 1x10 with brief hold Comments cued for no hip rotation; improved with reps Ankle dorsiflexion Side right Resistance lvl 2 teal tb Reps/Minutes x10 with brief hold Comments improved form and control Standing Exercises step up Standing Exercise Name 8 fwd step up Side bilateral Reps/Minutes 2x12 ea Comments cued knee centered over foot, no valgus; improved with reps DF mobilization Standing Exercise Name self mobilization Side right Equipment Used foot elevated on 18 step; PT mob then pt self mob w fingers Reps/Minutes 10x2 Comments no pain toe raises Side bilateral Resistance AROM Equipment Used feet in front, back against wall Reps/Minutes 2x12 Comments no pain, good form heel raises Standing Exercise Name 1. gastroc with post tib, 2. soleus Side bilateral Resistance AROM Equipment Used 2 fingers support for balance, tennis ball btwn ankles Reps/Minutes 1. 2x12, 2. 2x10 Comments cued up/down w string hip abduction Standing Exercise Name side stepping Side bilateral Resistance lvl 2 tb around ankles Equipment Used no hand rail Reps/Minutes 2x20 ft Comments slight squat posture, cued foot clearance L calf stretch Standing Exercise Name 1. gastrocnemius, 2. soleus Side bilateral Equipment Used [id number] Reps/Minutes 1x30 ea Comments reports good stretch Neuro Re-Education Treatment Balance Activities Shuttle Balance Details A/P, M/L Surface unstable, red level Reps/Duration 2 min ea direction Comments Cued to try to stabilize platform without UE use. Good ankle strategy with time, cueing only for weight shift for stability as pt improves proprioceptive awareness. Progressed from 2 finger UE to no hand use CGA for safety. Reports no ankle/foot pain Self-Care/Home Management Treatment Education Patient Education Home Exercise Program Other Education HEP: side step with band at ankles, heel raise with ball gastroc, heel raise soleus, dorsiflex raise using wall, step up. PT recommended pt continue with banded inversion /eversion, trial ambulation program at slower pace, gradually increasing distance PT-OP-T Assessment and Plan Start: 12/05/23 13:46 Freq: Status: Active Protocol: Document 12/20/23 13:00 NM (Rec: 12/20/23 13:48 NM [id number]) Physical Therapy Assessment Goals Five Impairment LEFS/FAAM Impairment LEFS 55/80, FAAM 57/84 Long-Term Goal (LTG) Pt will increase LEFS score by at least 9 points (MCID) and FAAM by at least 8 points ( MCID) in order to demonstrate improved activity tolerance LTG Duration 8 weeks Four Impairment ambulation Impairment reports unable to ambulate on daily 30 min walks Short Term Goal (STG) Pt will report that he is able to ambulate at least 3x/wk for 15 minutes with R ankle pain <4/10 in order to demonstrate increased tolerance for activity 12/14/23: Pt to initiate gentle walking program 10' total at slower pace than usual with mindfulness for eccentric control w/ LEs. STG Duration 4 weeks Office Helper Goal (LTG) Pt will report that he is able to ambulate at least 3x/wk for 30 minutes with R ankle pain <4/10 in order to demonstrate increased tolerance for activity LTG Duration 8 weeks Three Impairment strength Impairment ankle DF/inversion/eversion MMT 4-/5 Short Term Goal (STG) Pt will increase R ankle MMT globally to at least 4/5 in order to demonstrate improved ankle strength and stability during ADLs, gait on even and uneven surfaces STG Duration 4 weeks Long-Term Goal (LTG) Pt will increase R ankle MMT globally to at least 4+/5 in order to demonstrate improved ankle strength and stability during ADLs, gait on even and uneven surfaces LTG Duration 8 weeks Two Impairment strength Impairment 10 bilateral heel raises Short Term Goal (STG) Pt will be able to perform at least 20 bilateral heel raises without pain or compensation in order to demonstrate increased B ankle strength required for ambulation and stairs 12/14/23: Pt requires cues w/ fatigue for neutral foot position and decreased UE support. STG Duration 4 weeks Office Helper Goal (LTG) Pt will be able to perform at least 10 eccentric single leg heel raises on ea leg without pain or compensation in order to demonstrate increased B ankle strength required for ambulation and stairs LTG Duration 8 weeks One Impairment AROM Impairment R DF AROM 8 deg Short Term Goal (STG) Pt will increase R ankle dorsiflexion to at least 10 deg for improved ankle mobility during gait and ADLs STG Duration 4 weeks Office Helper Goal (LTG) Pt will increase R ankle dorsiflexion to at least 12 deg for improved ankle mobility during gait and ADLs LTG Duration 8 weeks Assessment Summary Assessment Pt tolerated session well without any ankle or foot pain . He has been compliant with strengthening portion of HEP, but has not attempting to return to daily ambulation. PT recommended pt continue with BLANKET MAKER's advice from last week and attempt slower gait speed for shorter time then gradually increase if pain free. Pt verbalizes understanding. Pt progressed to standing ankle dorsiflexion and plantarflexion. Able to perform several reps without any pain, good form. However, pt demos posterior tibialis weakness, so added ball between ankles as tactile cue for form. Continued with and progressed glute/quad strengthening to assist ankle stability; added 8 step up. Pt requires cues for knee over ankle, but no pain and form improved with reps. Initiated standing balance on unstable surface, with pt having to use ankle proprioception to maintain upright posture. Demos good ankle strategy with cues. Pt would benefit from further hip and ankle strengthening overall, progressing well with pain management. Pt would benefit from skilled PT for R ankle strengthening and mobility, in addition to global progressive BLE strengthening and proprioceptive training in order to return to PLOF. Physical Therapy Plan Frequency and Duration Frequency of Treatment 1x/Week Duration of treatment (weeks) 8 Plan of Care Start Date 12/05/23 Plan of Care End Date 02/01/24 Therapeutic Interventions Therapeutic Interventions Balance Training,Coordination Training,Gait Training,Home Exercise Program,Joint Mobilizations,Manual Therapy, Neuromuscular Re-education, Orthotic/Prosthetic Management ,Patient/Caregiver Education, Self-Care/Home Management, Sensory Integration,Soft Tissue Mobilization,Taping, Therapeutic Activities, Therapeutic Exercises Modalities Cold Pack/Ice Massage,Hot Packs Next Visit Focus/Plan Next Note Type Treatment Note Next Visit Plan Next session: Trial eccentric/ elevated heel raise, squats with band, step up, balance/ proproception, ankle mobility. Progress hip abd/glute strengthening in standing ( side steps, squats) Manual treatment to plantarfascia, ankle as needed
--- NOTE | 2024-04-16 11:59 | PT.OPDS ---
Current Diagnoses Pain in right ankle and joints of right foot (12/20/23) Peroneal tendinitis, right leg (12/20/23) Pain in right foot (12/20/23) Other lack of coordination (12/20/23) Weakness (12/20/23) Visit Care Team Role Provider Type Germán Koo MD Family Provider Physician Primary Care Provider Specialty: Family Practice Address: [address] [place] [address], [id number] Email: [email or web address] Courtney Barksdale DPM Attending Provider Physician Referring Provider Specialty: Orthopedics Orthopedic Surgery Podiatry Address: [address] [place] [address], [phone] Email: [email or web address] Visit Number Visit Number 4 Discharge Summary PT-OP-B Current Condition Start: 12/05/23 13:46 Freq: Status: Active Protocol: Document 12/05/23 13:47 NM (Rec: 12/05/23 17:55 NM [id number]) Current Condition History of Current Condition Onset Date 6 months ago Current Complaints pain, weakness, difficulty walking History of Current Condition Pt presents with R foot/ankle pain pain. No known JONNY, but reports feeling it on his normal walk. Pt states pain is present primarily along his R lateral ankle, wrapping to front when present. He also reports pain near heel, along arch, laterally. Had a previous episode several months ago that was very painful but relieved with medication. Pt attributes pain partially to shoe choice. He does not know if previous ankle sprain, but has a binder of exercises for ankle sprain rehab. Currently: no regular walking (<30 min/day), reports can do shopping/ADLs without difficulty. Ankle pain is worse with going down stairs, hills. He also reports worsening balance, decreased proprioception. Reports more his R swollen ankle over the last month, thinks bad circulation because it's bilateral. Numbness in foot only with driving, no other reported instances. Pt is currently moving; he is active and does light weight lifting in supine/sitting daily. Previously, pt was using a lateral wedge in his shoe issued by Dr. Solo but has not been wearing it because it doesn't help Prior Treatments and Tests Pt reports no previous PT or imaging related to this episode of ankle/foot pain Current Functional Impairments (Reported) Functional Limitations- Mobility/Gait Unable to ambulate for 30 minutes due to pain. No difficulty with shopping or other ADLs Functional Limitations- Recreation/ Limited ability to perform Hobbies yard work PT-OP-C Subjective Start: 12/05/23 13:46 Freq: Status: Active Protocol: Document 12/20/23 13:00 NM (Rec: 12/20/23 13:48 NM [id number]) OP-PT Subjective Patient Comments Patient Comments Pt reports that his foot/ankle is doing better, reports less pain overall. He has been compliant with HEP, miranda strengthening. Pt reports ant heel pain near arch after being on his feet. Did not attempting walking program but is planning to try today PT-OP-D Balance Start: 12/05/23 13:46 Freq: Status: Active Protocol: Document 12/05/23 13:47 NM (Rec: 12/05/23 17:55 NM [id number]) Balance Tests Single Limb Standing Single Limb- Right 8 seconds; no pain, decreased stability Single Limb- Left 10 seconds; decreased stability Tandem Tandem Standing 10 seconds, increased sway PT-OP-E Functional Tests Start: 12/05/23 13:46 Freq: Status: Active Protocol: Document 12/05/23 13:47 NM (Rec: 12/05/23 17:55 NM [id number]) Functional Tests Five Times Sit to Stand Test Score 8 seconds Comments no pain, decreased dorsiflexion bilaterally Squat Test Score 10 Comments decreased dorsiflexion, increased tibial fwd, pronation, fwd trunk PT-OP-F Manual Assessment Start: 12/05/23 13:46 Freq: Status: Active Protocol: Document 12/05/23 13:47 NM (Rec: 12/05/23 17:55 NM [id number]) Manual Assessments Soft Tissue Assessment Soft Tissue Mobility Assessment No restrictions of R Achilles, but atrophy of all ankle muscles. Joint Mobility Assessment Joint Mobility Assessment No ligamentous instability, subluxation. Decreased R toe extension mobility. Decreased ankle mobility bilaterally, R> L. Adduction of B 5th toes PT-OP-G Mobility & Gait Start: 12/05/23 13:46 Freq: Status: Active Protocol: Document 12/05/23 13:47 NM (Rec: 12/05/23 17:55 NM [id number]) OP Gait Assessment Gait Gait Assistance Required: Independent Distance (Feet) 200 Assistive Devices Assistive Device None Gait Deviations General Gait Pattern Antalgic,Decreased Stride Length,Decreased Feet Clearance Factors Limiting Gait Function Factors Limiting Gait Function Decreased Activity Tolerance, Decreased Strength,Limited Range of Motion,Pain,Poor Balance Comments Gait Comments Increased toe out bilaterally, pronation. Limited dorsiflexion PT-OP-H Neuro Start: 12/05/23 13:46 Freq: Status: Active Protocol: Document 12/05/23 13:47 NM (Rec: 12/05/23 17:55 NM [id number]) Sensation Evaluation Gross Sensation Gross Sensation WNL Comments Summary Comments BLE intact to light touch sensation equally PT-OP-J Posture/Palpation/Skin Start: 12/05/23 13:46 Freq: Status: Active Protocol: Document 12/05/23 13:47 NM (Rec: 12/05/23 17:55 NM [id number]) Posture Evaluation Position Standing Head/C-Spine Posture Forward Head T-Spine Posture Increased Kyphosis L-Spine Posture Increased Lordosis Pelvis Posture Anteriorly Tilted Hip Posture (L) Externally Rotated,(R) Externally Rotated Knee Posture (L) Genu Valgus,(R) Genu Valgus Patellar Posture (L) Superior,(R) Superior Ankle/Foot Posture (L) Pronated,(R) Pronated Foot Arch (L) Low Arch,(R) Low Arch Toe Posture (L) Flexed Toes,(R) Flexed Toes Comments Posture Comments Bilateral tailor's bunion Palpation Assessment Location R ankle/foot Palpation Location lateral ankle, B malleoli, rays 1-5, tarsals, calcaneus Palpation Findings Soft Tissue Tightness, Tenderness Palpation Details Tenderness inferior to lateral malleoli. No tenderness of B malleoli. No tenderness along metatarsals, calcaneus, Achilles, proximal fibula, or tibia. No tenderness of plantar fascia Skin Assessment Circumference Measurement Circumference of malleoli Location R ankle 27.5 cm, L ankle 27 cm Figure 8 Location R ankle 54 cm, L ankle 52 cm Other Assessments Skin Assessment Comments Increased edema along medial malleoli bilaterally, mild pitting. Increased rubor in BLE with dependency PT-OP-K Range of Motion Start: 12/05/23 13:46 Freq: Status: Active Protocol: Document 12/05/23 13:47 NM (Rec: 12/05/23 17:55 NM [id number]) Hip Goniometric Range of Motion Hip Right Flexion w/Knee Flexed 105 Left Flexion w/Knee Flexed 110 Knee Goniometric Range of Motion Knee Right Flexion Active (degrees) 125 Extension Active (degrees) 0 Left Flexion Active (degrees) 125 Extension Active (degrees) 0 Ankle and Foot Goniometric Range of Motion Ankle and Foot Right Dorsiflexion with Knee Flexed 8 Dorsiflexion with Knee Extended 5 Plantarflexion 30 Inversion 10 Eversion 5 Comments No pain with AROM but limited globally Left Dorsiflexion with Knee Flexed 10 Dorsiflexion with Knee Extended 15 Plantarflexion 30 Inversion 10 PT-OP-L Special Tests Start: 12/05/23 13:46 Freq: Status: Active Protocol: Document 12/05/23 13:47 NM (Rec: 12/05/23 17:55 NM [id number]) Special Tests Foot/Ankle Special Tests Windlass Test Results - Carey Test Results - Forced Dorsiflexion Impingement Test Results - Comments No impingement but reports increased pain under lateral malleolus with pressure along subtalar joint Talar Tilt Test Results - Anterior drawer Test Results - PT-OP-M Strength Start: 12/05/23 13:46 Freq: Status: Active Protocol: Document 12/05/23 13:47 NM (Rec: 12/05/23 17:55 NM [id number]) Hip Strength Hip Manual Muscle Testing Right Flexion (L2) 4 Good Extension (S1) 4 Good Abduction 4 Good Adduction 4 Good External Rotation 4 Good Internal Rotation 4 Good Left Flexion (L2) 4 Good Extension (S1) 4 Good Abduction 4 Good Adduction 4 Good External Rotation 4 Good Internal Rotation 4 Good Knee Strength Knee Manual Muscle Testing Right Flexion (S2) 4 Good Extension (L3) 4 Good Left Flexion (S2) 4 Good Extension (L3) 4 Good Ankle/Foot Strength Ankle and Foot Manual Muscle Testing Right Dorsiflexion (L4) 4- Good- Plantarflexion (S1) 4- Good- Inversion 4- Good- Eversion (S1) 4- Good- Comments 10 bilateral heel raises, unable to perform single heel raise Left Dorsiflexion (L4) 4 Good Plantarflexion (S1) 4 Good Inversion 4 Good Eversion (S1) 4 Good Comments 10 bilateral heel raises, unable to perform single heel raise Toe Strength Toe Manual Muscle Testing Right Great Toe Flexion 4 Good Extension 4 Good Left Great Toe Flexion 4 Good Extension 4 Good PT-OP-T Assessment and Plan Start: 12/05/23 13:46 Freq: Status: Active Protocol: Document 04/16/24 11:55 NM (Rec: 04/16/24 11:59 NM [id number]) Physical Therapy Assessment Goals Five Impairment LEFS/FAAM Impairment LEFS 55/80, FAAM 57/84 Mcfp Goal (LTG) Pt will increase LEFS score by at least 9 points (MCID) and FAAM by at least 8 points ( MCID) in order to demonstrate improved activity tolerance LTG Duration 8 weeks Four Impairment ambulation Impairment reports unable to ambulate on daily 30 min walks Short Term Goal (STG) Pt will report that he is able to ambulate at least 3x/wk for 15 minutes with R ankle pain <4/10 in order to demonstrate increased tolerance for activity 12/14/23: Pt to initiate gentle walking program 10' total at slower pace than usual with mindfulness for eccentric control w/ LEs. STG Duration 4 weeks Mcfp Goal (LTG) Pt will report that he is able to ambulate at least 3x/wk for 30 minutes with R ankle pain <4/10 in order to demonstrate increased tolerance for activity LTG Duration 8 weeks Three Impairment strength Impairment ankle DF/inversion/eversion MMT 4-/5 Short Term Goal (STG) Pt will increase R ankle MMT globally to at least 4/5 in order to demonstrate improved ankle strength and stability during ADLs, gait on even and uneven surfaces STG Duration 4 weeks [employer] Supervisor Goal (LTG) Pt will increase R ankle MMT globally to at least 4+/5 in order to demonstrate improved ankle strength and stability during ADLs, gait on even and uneven surfaces LTG Duration 8 weeks Two Impairment strength Impairment 10 bilateral heel raises Short Term Goal (STG) Pt will be able to perform at least 20 bilateral heel raises without pain or compensation in order to demonstrate increased B ankle strength required for ambulation and stairs 12/14/23: Pt requires cues w/ fatigue for neutral foot position and decreased UE support. STG Duration 4 weeks Mcfp Goal (LTG) Pt will be able to perform at least 10 eccentric single leg heel raises on ea leg without pain or compensation in order to demonstrate increased B ankle strength required for ambulation and stairs LTG Duration 8 weeks One Impairment AROM Impairment R DF AROM 8 deg Short Term Goal (STG) Pt will increase R ankle dorsiflexion to at least 10 deg for improved ankle mobility during gait and ADLs STG Duration 4 weeks [employer] Supervisor Goal (LTG) Pt will increase R ankle dorsiflexion to at least 12 deg for improved ankle mobility during gait and ADLs LTG Duration 8 weeks Assessment Summary Assessment Pt was evaluated in November 2023 for R ankle and foot pain . He attended 3 visits following evaluation. Pt was progressing slowly toward goals and was compliant with HEP. Pt has not been seen in clinic since 12/20/23. He called on 12/24/23 to cancel remaining appointments, stating he could perform exercises on his own. He will be discharged from PT per his request and will need a new referral to return to PT. Physical Therapy Plan Frequency and Duration Frequency of Treatment 1x/Week Duration of treatment (weeks) 8 Plan of Care Start Date 12/05/23 Plan of Care End Date 02/01/24 Therapeutic Interventions Therapeutic Interventions Balance Training,Coordination Training,Gait Training,Home Exercise Program,Joint Mobilizations,Manual Therapy, Neuromuscular Re-education, Orthotic/Prosthetic Management ,Patient/Caregiver Education, Self-Care/Home Management, Sensory Integration,Soft Tissue Mobilization,Taping, Therapeutic Activities, Therapeutic Exercises Modalities Cold Pack/Ice Massage,Hot Packs Discharge Physical Therapy Discharge Reasons Patient Request Discharge Comments Pt called on 12/24/23 requesting discharge from PT when cancelling all remaining appointments. He will need a new referral in order to return to PT Next Visit Focus/Plan Next Visit Plan Discharge from PT
== END 2024-04-23 08:41 ==
LOC: PHYS 13:00
PROVIDERS: Family Provider Family Medicine; PCP Family Medicine; Referring Provider Podiatrist; Visit Provider Podiatrist
DX: M79.671 Pain in right foot (principal); M76.71 Peroneal tendinitis, right leg; M25.571 Pain in right ankle and joints of right foot; R53.1 Weakness; R27.8 Other lack of coordination
CPT/HCPCS: 97110; 97161; 97535

== ENCOUNTER → 2024-03-14 07:59 | Outpatient (CLI) | payer OTHER, SELFPAY ==
[2024-03-14 08:53] LABS: Add Manual Diff / Slide Review NO; Basophils Absolute Auto 0 /uL (0-100); Basophils Percent Auto 0.3 % (0-2); Eosinophils Absolute Auto 100 /uL (0-450); Eosinophils Percent Auto 1.7 % (2-4); Hematocrit 41.2 % (41-53); Hemoglobin 13.9 g/dL (13.5-17.5); Lymphocytes Absolute Auto 700 /uL (1100-4500); Lymphocytes Percent Auto 16.6 % (25-40); Mean Corpuscular HGB Conc 33.8 % (30-36); Mean Corpuscular Hemoglobin 32.9 PG (26-34); Mean Corpuscular Volume 97.3 fL (80-100); Monocytes Absolute Auto 400 /uL (0-900); Monocytes Percent Auto 9.5 % (3-14); Neutrophils Absolute Auto 3200 /uL (1500-7000); Neutrophils Percent Auto 71.9 % (50-75); Platelet Count 103 X10^3/uL (150-400); Red Blood Cell Count 4.24 X10^6/uL (4.5-5.9); Red Cell Distribution Width 13.5 % (11.6-14.8); White Blood Cell Count 4.5 X10^3/uL (4.5-11.0)
[2024-03-14 09:29] LABS: Alanine Aminotransferase 29 IU/L (<50); Albumin 4.1 g/dL (3.5-5.0); Albumin Globulin Ratio 1.6 (1.0-2.8); Alkaline Phosphatase 70 U/L (38-126); Aspartate Aminotransferase 41 IU/L (17-59); BUN Creatinine Ratio 18.9 (6-22); Bilirubin Total 0.9 mg/dL (0.2-1.3); Blood Urea Nitrogen 24 mg/dL (9-20); Carbon Dioxide 27 mmol/L (22-32); Chloride 107 mmol/L (98-107); Cholesterol 180 mg/dL (140-199); Estimated Glomerular Filt Rate 54 mL/min (>60); Globulin 2.5 g/dL (1.7-4.1); Glucose 89 mg/dL (80-110); HDL Cholesterol 65 mg/dL (40-60); HEMOLYSIS < 15 (0-50); LDL Cholesterol Calculated 102 mg/dL (<100); Potassium 4.2 mmol/L (3.4-5.1); Sodium 138 mmol/L (137-145); Total Protein 6.6 g/dL (6.3-8.2); Triglycerides 65 mg/dL (35-150)
[2024-03-14 09:33] LABS: Creatinine Urine Random 48.39 mg/dL
[2024-03-14 09:40] LABS: Microalbumin Urine Random 1.5 mg/dL (0-1.6)
[2024-03-14 09:59] LABS: TSH w/ Reflex to FT4 1.95 uIU/mL (0.47-4.68)
[2024-03-14 10:19] LABS: Hep C Virus Ab w/Reflex Quant NEGATIVE s/c (NEGATIVE)
[2024-03-18 07:21] LABS: Apolipoprotein B 81 mg/dL (<90); IgA 164 mg/dL (61-437); t-Transglutaminase IgA <2 U/mL (0-3)
[2024-03-18 16:15] LABS: Deamidated Gliadin Ab IgA 5 units (0-19); Deamidated Gliadin Ab IgG 2 units (0-19); Immunoglobulin A,Qn 158 mg/dL (61-437); t-Transglutaminase IgA <2 U/mL (0-3)
== END ==
LOC: LAB 08:00
PROVIDERS: Family Provider Family Medicine; PCP Family Medicine; Referring Provider Family Medicine; Visit Provider Family Medicine
DX: Z12.5 Encounter for screening for malignant neoplasm of prostate (principal); M47.816 Spondylosis without myelopathy or radiculopathy, lumbar region; N18.31 Chronic kidney disease, stage 3a; I48.0 Paroxysmal atrial fibrillation; M17.0 Bilateral primary osteoarthritis of knee; N40.1 Benign prostatic hyperplasia with lower urinary tract symptoms; I48.92 Unspecified atrial flutter; R19.5 Other fecal abnormalities; T78.1XXA Other adverse food reactions, not elsewhere classified, initial encounter; D69.6 Thrombocytopenia, unspecified; K63.8219 Small intestinal bacterial overgrowth, unspecified; K13.0 Diseases of lips; Z95.0 Presence of cardiac pacemaker
CPT/HCPCS: 36415; 80053; 80061; 82043; 82172; 82570; 82784; 83516; 84443; 85025; 86803; G0103